=== PATIENT | male | born 1985 | race African-American/Black ===

== ENCOUNTER 2016-11-09 19:17 | Emergency (ER) | payer SELFPAY ==
[~2016-11-09 19:17] MED LIST: MIRT7.5T10 PO; PRIS50TA PO
[2016-11-09 19:32] VITALS: BP 100/63; PULSE 90; RESP 18; TEMP 97.8; O2SAT 98
--- NOTE | 2016-11-09 21:21 | PD ---
HPI Chief Complaint: Alcohol/Drug Intoxication Time Seen by Provider: 21:21 Travel History International Travel<30 days: No Contact w/Intl Traveler<30days: No Traveled to known affect area: No History of Present Illness HPI 31 year old male presents to the ED via EMS after being found sleeping on the roadside. On presentation the patient is sleeping but arouses easily to voice. He states that he drank "a bunch of 4 packs" of beer and took "a handful" of tramadol and attempt to end his life. He does not give any reason for this. He does endorse previous suicide attempts and previous psychiatric hospitalization. He denies somatic complaints. PFSH Past Medical History Arthritis: Yes Asthma: Yes Diminished Hearing: No Integumentary: Yes (HX MRSA) Seizures: Yes Past Surgical History Surgical History: No Previous Surgery Social History Alcohol Use: Yes (DAILY) Tobacco Use: Yes (1 ppd) Substance Use: Yes Allergies-Medications (Allergen,Severity, Reaction): Coded Allergies: No Known Allergies (Verified , 09/18/12) Reported Meds & Prescriptions Reported Meds & Active Scripts Active Review of Systems Except as stated in HPI: all other systems reviewed are Neg Physical Exam Narrative GENERAL: Well-nourished, well-developed male in no acute distress. Somnolent, wakes easily to voice. SKIN: Focused skin assessment warm/dry. HEAD: Normocephalic. Atraumatic EYES: No scleral icterus. No injection or drainage. 4-5 mm bilaterally, equal round and reactive NECK: Supple, trachea midline. No JVD or lymphadenopathy. CARDIOVASCULAR: Regular rate and rhythm without murmurs, gallops, or rubs. RESPIRATORY: Breath sounds clear and equal bilaterally. No accessory muscle use. GASTROINTESTINAL: Abdomen soft, non-tender, nondistended. Active bowel sounds MUSCULOSKELETAL: No cyanosis, or edema. Patient moves extremities spontaneously. BACK: Nontender without obvious deformity. No CVA tenderness. Data Data Last Documented VS Vital Signs Date Time Temp Pulse Resp B/P Pulse Ox O2 Delivery O2 Flow Rate FiO2 11/10/16 04:48 72 18 120/71 96 Room Air 11/09/16 19:32 97.8 Orders Complete Blood Count With Diff (11/09/16 21:32) Comprehensive Metabolic Panel (11/09/16 21:32) Urinalysis - C+S If Indicated (11/09/16 21:32) Oximetry (11/09/16 21:32) Iv Access Insert/Monitor (11/09/16 21:32) Ecg Monitoring (11/09/16 21:32) Psych Screen (11/09/16 21:32) Drug Screen, Random Urine (11/09/16 21:32) Alcohol (Ethanol) (11/09/16 21:32) Salicylates (Aspirin) (11/09/16 21:32) Tylenol (Acetaminophen) (11/09/16 21:32) Diet Regular Basic (11/10/16 Breakfast) Labs Laboratory Tests Test 11/09/16 21:50 White Blood Count 13.2 TH/MM3 Red Blood Count 5.13 MIL/MM3 Hemoglobin 14.3 GM/DL Hematocrit 44.5 % Mean Corpuscular Volume 86.6 FL Mean Corpuscular Hemoglobin 27.9 PG Mean Corpuscular Hemoglobin 32.2 % Concent Red Cell Distribution Width 14.7 % Platelet Count 240 TH/MM3 Mean Platelet Volume 7.4 FL Neutrophils (%) (Auto) 83.0 % Lymphocytes (%) (Auto) 10.3 % Monocytes (%) (Auto) 6.1 % Eosinophils (%) (Auto) 0.3 % Basophils (%) (Auto) 0.3 % Neutrophils # (Auto) 10.9 TH/MM3 Lymphocytes # (Auto) 1.4 TH/MM3 Monocytes # (Auto) 0.8 TH/MM3 Eosinophils # (Auto) 0.0 TH/MM3 Basophils # (Auto) 0.0 TH/MM3 CBC Comment DIFF FINAL Differential Comment Sodium Level 139 MEQ/L Potassium Level 3.5 MEQ/L Chloride Level 102 MEQ/L Carbon Dioxide Level 27.2 MEQ/L Anion Gap 10 MEQ/L Blood Urea Nitrogen 6 MG/DL Creatinine 1.11 MG/DL Estimat Glomerular Filtration 92 ML/MIN Rate Random Glucose 88 MG/DL Calcium Level 8.7 MG/DL Total Bilirubin 0.3 MG/DL Aspartate Amino Transf 34 U/L (AST/SGOT) Alanine Aminotransferase 34 U/L (ALT/SGPT) Alkaline Phosphatase 85 U/L Total Protein 7.7 GM/DL Albumin 3.7 GM/DL Salicylates Level LESS THAN 1.7 MG/DL Acetaminophen Level LESS THAN 2.0 MCG/ML Ethyl Alcohol Level 172 MG/DL MDM Medical Decision Making Medical Screen Exam Complete: Yes Emergency Medical Condition: Yes Differential Diagnosis Adjustment disorder versus anxiety versus bipolar versus depression versus dementia versus electrolyte disorder versus malingering versus mood disorder versus ODD versus psychosis versus PTSD versus schizophrenia versus schizoaffective disorder versus substance-induced mood disorder versus other Narrative Course 31 year old male presents to the ED via EMS after being found sleeping on the roadside. He states that he drank "a bunch of 4 packs" of beer and took "a handful" of tramadol and attempt to end his life. He does not give any reason for this. He does endorse previous suicide attempts and previous psychiatric hospitalization. He denies somatic complaints. Vitals reviewed. Patient is somnolent but arouses easily to voice. Physical exam is otherwise unremarkable. Psych screening lab work pending, anticipate medical clearance. Disposition per psych. Lydia Zimmerman November 09, 2016 21:21
[2016-11-09 21:29] VITALS: BP 107/67; PULSE 78; RESP 12; O2SAT 95
[2016-11-09 21:30] VITALS: RESP 18; O2SAT 96
[2016-11-09 22:13] LABS: AUTOMATED NEUTROPHIL # 10.9 TH/MM3 (1.8-7.7); BASOPHIL % 0.3 % (0.0-2.0); EOSINOPHIL % 0.3 % (0.0-4.0); HEMATOCRIT 44.5 % (39.0-51.0); HEMO FLAGS DIFF FINAL; LYMPH % 10.3 % (9.0-44.0); LYMPHOCYTE # 1.4 TH/MM3 (1.0-4.8); MEAN CELL VOLUME 86.6 FL (80.0-100.0); MEAN CORPUSCULAR HEMOGLOBIN 27.9 PG (27.0-34.0); MEAN CORPUSCULAR HGB CONC 32.2 % (32.0-36.0); MONO % 6.1 % (0.0-8.0); PLATELET COUNT 240 TH/MM3 (150-450); RED BLOOD COUNT 5.13 MIL/MM3 (4.50-5.90); RED CELL DISTRIBUTION WIDTH 14.7 % (11.6-17.2); WHITE BLOOD COUNT 13.2 TH/MM3 (4.0-11.0)
[2016-11-09 22:34] LABS: ANION GAP 10 MEQ/L (5-15)
[2016-11-09 22:38] LABS: ACETAMINOPHEN LESS THAN 2.0 MCG/ML (10.0-30.0); ALKALINE PHOSPHATASE 85 U/L (45-117); ALT (GPT) 34 U/L (12-78); AST (GOT) 34 U/L (15-37); BICARBONATE 27.2 MEQ/L (21.0-32.0); BLOOD UREA NITROGEN 6 MG/DL (7-18); CHLORIDE 102 MEQ/L (98-107); GLOMERULAR FILTRATION RATE 92 ML/MIN (>89); POTASSIUM 3.5 MEQ/L (3.5-5.1); SODIUM (NA) 139 MEQ/L (136-145); TOTAL BILIRUBIN ADULT 0.3 MG/DL (0.2-1.0)
[2016-11-09 23:00] VITALS: BP 132/66; PULSE 75; RESP 14; O2SAT 97
[2016-11-10 01:00] VITALS: BP 114/71; PULSE 71; RESP 15; O2SAT 96
[2016-11-10 03:00] VITALS: BP 119/73; PULSE 77; RESP 13; O2SAT 96
[2016-11-10 04:48] VITALS: BP 120/71; PULSE 72; RESP 18; O2SAT 96
[2016-11-10 10:22] VITALS: BP 110/57; PULSE 69; RESP 16; TEMP 97; O2SAT 99
[2016-11-10] MEDS ORDERED: ZOLO100T PO (10:35)
[2016-11-10 10:37] LABS: BLOOD, URINE NEG (NEG); COMMENT (UR) CULT NOT INDICATED; CULTURE IF INDICATED CULT NOT INDICATED; GLUCOSE,URINE NEG (NEG); KETONE, URINE NEG (NEG); MUCUS URINE FEW /lpf (OCC); NITRITE,URINE NEG (NEG); URINE COLOR YELLOW (YELLW/STRAW)
[2016-11-10 10:43] LABS: AMPHETAMINE, URINE NEG (NEG); BARBITURATES, URINE NEG (NEG); COCAINE, URINE POS (NEG)
--- NOTE | 2016-11-10 15:07 | PD ---
History of Present Illness Chief Complaint: Alcohol/Drug Intoxication Time Seen by Provider: 11:45 Travel History International Travel<30 Days: No Contact w/Intl Traveler<30days: No Known affected area: No Legal Status Legal Status: Martinez Act Martinez Act Signed By: Signed by ER Provider, JUVENTINO Kennedy. Martinez Act Comment: Signed by ER Provider, JUVENTINO Kennedy. History of Present Illness: History of Present Illness HPI 31 year old male with a reported history of depression as well as substance use disorder who presents to the ED via EMS after being found sleeping on the roadside. Patient was placed under a BA after he arrived to ED as he endorsed suicide attempt by overdose of alcohol and Tramadol. Patient reported he drank "a bunch of 4 packs" of beer and took "a handful" of tramadol and attempt to end his life. Patient was monitored in J pod and exhibited no suicidality. EMR is reviewed. He was evaluated by Dr. Hyatt in 2013 with dx of depression and polysubstance abuse. Current toxicology is positive for cocaine, marijuana and BAL of 172. He is seen in J pod. Awake, alert and oriented male who is cooperative. He is maintaining hygiene. His speech is clear, logical and goal directed. he does not exhibit any psychosis, no suni. He is clinically sober at this time. he denies any suicidal or homicidal ideation, intent or plan. States " I was drunk so I don't remember what I said". PFSH Past Medical History Arthritis: Yes Asthma: Yes Diminished Hearing: No Integumentary: Yes (HX MRSA) Seizures: Yes Past Surgical History Surgical History: No Previous Surgery Psychiatric History Psychiatric History Hx Psychiatric Treatment: Received care while he was incarcerated. . Has been on Zoloft x 1 year. Missed appointmetn scheduled with [facility]. History of Inpatient Treatment: No Guns or firearms in home: No Social History Single male. Lives with a friend. 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 Served time for [employer]. Hx Alcohol Use: Yes (DAILY) Hx Tobacco Use: Yes (1 ppd) Hx Substance Use: Yes Substance Use Type: Alcohol, Crack, Marijuana, Amphetamines-Stimulants, Nicotine/Cigarettes, Benzos (Valium,Xanax), Cocaine Hx of Substance Use Treatment: Yes Family Psychiatric History Negative Allergies-Medications (Allergen,Severity, Reaction): Coded Allergies: No Known Allergies (Verified , 09/18/12) Reported Meds & Prescriptions Reported Meds & Active Scripts Active Reported Zoloft (Sertraline HCl) 100 Mg Tab 100 Mg PO DAILY Review of Systems Except as stated in HPI: all other systems reviewed are Neg Exam Alert: Yes Moose: Person (ox4) Mood: Calm Affect: Appropriate Speech: Clear, Logical Eye Contact: Normal Memory Intact: Comment (no impairment) Hallucinations: Other (Negative) Delusions: No Suicidal: Ideation (denies any) Homicidal: Ideation (denies any) Insight/Judgement Poor. Not impaired MDM Medical Decision Making Medical Record Reviewed: Yes Assessment/Plan 31 year old male with history of depression as well as substance use disorder that in context of acute substance and alcohol intoxication made suicidal statements. After patient was allowed to sober up clinically he denies any suicidal or homicidal ideation, intent or plan. He is requesting discharge from ED and does no meet criteria at this time. Psychoeducation is provided. Abstinence is advised . lift BA psyc Orders Complete Blood Count With Diff (11/09/16 21:32) Comprehensive Metabolic Panel (11/09/16 21:32) Urinalysis - C+S If Indicated (11/09/16 21:32) Oximetry (11/09/16 21:32) Iv Access Insert/Monitor (11/09/16 21:32) Ecg Monitoring (11/09/16 21:32) Psych Screen (11/09/16 21:32) Drug Screen, Random Urine (11/09/16 21:32) Alcohol (Ethanol) (11/09/16 21:32) Salicylates (Aspirin) (11/09/16 21:32) Tylenol (Acetaminophen) (11/09/16 21:32) Diet Regular Basic (11/10/16 Breakfast) Results Vital Signs Date Time Temp Pulse Resp B/P Pulse Ox O2 Delivery O2 Flow Rate FiO2 11/10/16 10:22 97.0 69 16 110/57 99 11/10/16 04:48 72 18 120/71 96 Room Air 11/10/16 03:00 77 13 119/73 96 Room Air 11/10/16 01:00 71 15 114/71 96 Room Air 11/09/16 23:00 75 14 132/66 97 Room Air 11/09/16 21:30 18 96 Room Air 11/09/16 21:29 78 12 107/67 95 11/09/16 19:48 18 100 11/09/16 19:32 97.8 90 18 100/63 98 Laboratory Tests Test 11/09/16 11/10/16 21:50 10:20 White Blood Count 13.2 Red Blood Count 5.13 Hemoglobin 14.3 Hematocrit 44.5 Mean Corpuscular Volume 86.6 Mean Corpuscular Hemoglobin 27.9 Mean Corpuscular Hemoglobin 32.2 Concent Red Cell Distribution Width 14.7 Platelet Count 240 Mean Platelet Volume 7.4 Neutrophils (%) (Auto) 83.0 Lymphocytes (%) (Auto) 10.3 Monocytes (%) (Auto) 6.1 Eosinophils (%) (Auto) 0.3 Basophils (%) (Auto) 0.3 Neutrophils # (Auto) 10.9 Lymphocytes # (Auto) 1.4 Monocytes # (Auto) 0.8 Eosinophils # (Auto) 0.0 Basophils # (Auto) 0.0 CBC Comment DIFF FINAL Differential Comment Sodium Level 139 Potassium Level 3.5 Chloride Level 102 Carbon Dioxide Level 27.2 Anion Gap 10 Blood Urea Nitrogen 6 Creatinine 1.11 Estimat Glomerular Filtration 92 Rate Random Glucose 88 Calcium Level 8.7 Total Bilirubin 0.3 Aspartate Amino Transf 34 (AST/SGOT) Alanine Aminotransferase 34 (ALT/SGPT) Alkaline Phosphatase 85 Total Protein 7.7 Albumin 3.7 Salicylates Level LESS THAN 1.7 Acetaminophen Level LESS THAN 2.0 Ethyl Alcohol Level 172 Urine Color YELLOW Urine Turbidity CLEAR Urine pH 6.0 Urine Specific [place] 1.017 Urine Protein TRACE Urine Glucose (UA) NEG Urine Ketones NEG Urine Occult Blood NEG Urine Nitrite NEG Urine Bilirubin NEG Urine Urobilinogen 2.0 Urine Leukocyte Esterase NEG Urine RBC 1 Urine WBC 1 Urine Mucus FEW Microscopic Urinalysis Comment CULT NOT INDICATED Urine Opiates Screen NEG Urine Barbiturates Screen NEG Urine Amphetamines Screen NEG Urine Benzodiazepines Screen POS Urine Cocaine Screen POS Urine Cannabinoids Screen POS Diagnosis Primary Impression: Substance induced mood disorder Additional Impressions: Medical clearance for psychiatric admission Polysubstance abuse Psychiatrically Cleared: Yes Departure Forms: Tests/Procedures Patient Instructions: General Instructions, Mood Disorders (ED), Polysubstance Abuse (ED), Medical Clearance for Psychiatric Care (ED) Additional Instructions: Follow up with outpatient primary care provider. Follow up with outpatient psychiatric/substance abuse provider/[facility]ieves Act [phone]. CALL PRICE FREGOSO AND RESCHEDULE APPT MISSED. Attend AA/NA Meetings. Return to ER if any symptoms worsen. Med/ Other Pt Specific Info: No Change to Meds Disposition: 01 DISCHARGE HOME Condition: Stable Problem Qualifiers Venessa Sheffield [facility] November 10, 2016 15:06
== END 2016-11-10 12:37 | disposition home or self-care (01) ==
LOC: NEPD 19:17 → NEPJ 11-10 12:37
DX: F10.120 Alcohol abuse with intoxication, uncomplicated (principal); F17.210 Nicotine dependence, cigarettes, uncomplicated; F10.10 Alcohol abuse, uncomplicated; F12.10 Cannabis abuse, uncomplicated; F14.10 Cocaine abuse, uncomplicated; F15.10 Other stimulant abuse, uncomplicated; F32.9 Major depressive disorder, single episode, unspecified; Z91.5 Personal history of self-harm
CPT/HCPCS: 80053; 80307; 81001; 85025; 99285

== ENCOUNTER 2016-12-01 03:33 | Emergency (ER) | payer OTHER ==
[~2016-12-01] VITALS: Ht 167.6 cm; Wt 62.0 kg
[2016-12-01] VITALS (14 sets, daily range): BP systolic 98–164; BP diastolic 57–99; PULSE 44–83; RESP 13–20; TEMP 97.6–98.4; O2SAT 96–99
[~2016-12-01 03:33] MED LIST changes: -MIRT7.5T10 PO; -PRIS50TA PO; +ZOLO100T PO
[2016-12-01] MEDS ORDERED: SODIUM CHLOR 0.9% 1000 ML INJ 1,000 ML IV ONE (03:45)
[2016-12-01 04:15] LABS: AUTOMATED NEUTROPHIL # 6.5 TH/MM3 (1.8-7.7); BASOPHIL % 0.5 % (0.0-2.0); EOSINOPHIL # 0.2 TH/MM3 (0-0.4); HEMATOCRIT 47.3 % (39.0-51.0); HEMO FLAGS DIFF FINAL; LYMPH % 22.4 % (9.0-44.0); LYMPHOCYTE # 2.2 TH/MM3 (1.0-4.8); MEAN CORPUSCULAR HEMOGLOBIN 28.8 PG (27.0-34.0); MEAN CORPUSCULAR HGB CONC 33.5 % (32.0-36.0); MONO % 9.3 % (0.0-8.0); NEUT % 65.8 % (16.0-70.0); PLATELET COUNT 242 TH/MM3 (150-450); RED CELL DISTRIBUTION WIDTH 14.5 % (11.6-17.2); WHITE BLOOD COUNT 9.8 TH/MM3 (4.0-11.0)
[2016-12-01 04:26] LABS: APTT (PATIENT) 25.9 SEC (24.3-30.1); PROTHROMBIN TIME - PATIENT 10.8 SEC (9.8-11.6)
--- NOTE | 2016-12-01 04:29 | RADRPT ---
EXAM DATE/TIME: 12/01/2016 04:20 [place] COMPARISON: No previous studies available for comparison. INDICATIONS : Cough. MEDICAL HISTORY : None. SURGICAL HISTORY : None. ENCOUNTER: Initial ACUITY: 1 day PAIN SCORE: 0/10 LOCATION: Bilateral chest FINDINGS: A single view of the chest demonstrates the lungs to be symmetrically aerated without evidence of mas s, infiltrate or effusion. The cardiomediastinal contours are unremarkable. Osseous structures are intact. CONCLUSION: Normal examination. Scott Hernandez MD on December 01, 2016 at 4:27 Board Certified Radiologist. This report was verified electronically.
[2016-12-01 04:47] LABS: ANION GAP 10 MEQ/L (5-15)
--- NOTE | 2016-12-01 04:52 | PD ---
HPI Chief Complaint: Psychiatric Symptoms Time Seen by Provider: 03:42 Travel History International Travel<30 days: No Contact w/Intl Traveler<30days: No Traveled to known affect area: No History of Present Illness HPI The patient is a 31 year old male who presents to the [facility] emergency department with a history of depressive symptoms that began to worsen a week and a half ago and have been associated with suicidal ideations. The patient arrived in the emergency department with a suicide note and proceeded to take 13 of his 100 mg Zoloft when arriving in triage. He then provided a suicide note to the security staff. The patient reports that the Zoloft as his prescription. The patient reports that he also drinks alcohol on a daily basis. He reports that he does get tremulous when he does not drink. He denies having any prior seizure activity. Condition additionally reports that he uses cocaine on a regular basis. The patient denies any recent fevers, cough , congestion, neck pain, chest pain, shortness of breath, abdominal pain, vomiting, diarrhea, urinary symptoms, or neurologic symptoms. [facility] Past Medical History Narrative Medical The patient's past medical history is significant for polysubstance abuse, arthritis, asthma, history of MRSA skin infections, history of seizure activity , history of depression. Arthritis: Yes Asthma: Yes Diminished Hearing: No Integumentary: Yes (HX MRSA) Seizures: Yes Past Surgical History Narrative Surgical The patient's past surgical history is reportedly none. Surgical History: No Previous Surgery Social History Alcohol Use: Yes (DAILY) Tobacco Use: Yes (1 ppd) Substance Use: Yes (cocaine) Allergies-Medications (Allergen,Severity, Reaction): Coded Allergies: No Known Allergies (Verified , 12/01/16) Reported Meds & Prescriptions Reported Meds & Active Scripts Active Reported Zoloft (Sertraline HCl) 100 Mg Tab 100 Mg PO DAILY Review of Systems Except as stated in HPI: all other systems reviewed are Neg General / Constitutional: No: Fever Eyes: No: Visual changes HENT: No: Headaches Cardiovascular: No: Chest Pain or Discomfort Respiratory: No: Shortness of Breath Gastrointestinal: No: Abdominal Pain Genitourinary: No: Dysuria Musculoskeletal: No: Pain Skin: No Rash Neurologic: No: Weakness Psychiatric: Positive: Depression, Suicidal Ideations, Mood Disorder, Substance Abuse, No: Anxiety, Disorder of Thought, Homicidal Ideation Endocrine: No: Polydipsia Hematologic/Lymphatic: No: Easy Bruising Physical Exam Narrative General: The patient is well-developed well-nourished male in no acute distress. Head and Neck exam: Head is normocephalic atraumatic. Eyes: EOMI, pupils are equal round and reactive to light. Nose: Midline septum with pink mucous membranes Mouth: Dentition unremarkable. Moist mucus membranes. Posterior oropharynx is not erythematous. No tonsillar hypertrophy. Uvula midline. Airway patent. Neck: No palpable lymphadenopathy. No nuchal rigidity. No thyromegaly. Cardiovascular: Regular rate and rhythm without murmurs, gallops, or rubs. Lungs: Clear to auscultation bilaterally. No wheezes, rhonchi, or rales. Abdomen: Soft, without tenderness to palpation in all 4 quadrants of the abdomen. No guarding, rebound, or rigidity. Normal bowel sounds are audible. No tenderness on palpation of McBurney's point. Extremities: No clubbing, cyanosis, or edema. 2+ pulses in all 4 extremities. Back: No costovertebral angle tenderness to palpation. Neurologic Exam: Grossly nonfocal. Flat affect. Intermittently tearful. Skin Exam: No rash noted. Intact skin that is warm and dry. Data Data Last Documented VS Vital Signs Date Time Temp Pulse Resp B/P Pulse Ox O2 Delivery O2 Flow Rate FiO2 12/01/16 04:59 62 16 118/76 97 12/01/16 04:01 Room Air 12/01/16 03:35 98.4 Orders Complete Blood Count With Diff (12/01/16 03:44) Comprehensive Metabolic Panel (12/01/16 03:44) Thyroid Stimulating Hormone (12/01/16 03:44) Urinalysis - C+S If Indicated (12/01/16 03:44) Electrocardiogram (12/01/16 03:44) Oximetry (12/01/16 03:44) Iv Access Insert/Monitor (12/01/16 03:44) Ecg Monitoring (12/01/16 03:44) Psych Screen (12/01/16 03:44) Drug Screen, Random Urine (12/01/16 03:44) Alcohol (Ethanol) (12/01/16 03:44) Salicylates (Aspirin) (12/01/16 03:44) Tylenol (Acetaminophen) (12/01/16 03:44) Prothrombin Time / Inr (Pt) (12/01/16 03:44) Act Partial Throm Time (Ptt) (12/01/16 03:44) Chest, Single Ap (12/01/16 03:44) Sodium Chlor 0.9% 1000 Ml Inj (Ns 1000 M (12/01/16 03:45) Labs Laboratory Tests Test 12/01/16 04:10 White Blood Count 9.8 TH/MM3 Red Blood Count 5.50 MIL/MM3 Hemoglobin 15.9 GM/DL Hematocrit 47.3 % Mean Corpuscular Volume 86.0 FL Mean Corpuscular Hemoglobin 28.8 PG Mean Corpuscular Hemoglobin 33.5 % Concent Red Cell Distribution Width 14.5 % Platelet Count 242 TH/MM3 Mean Platelet Volume 7.4 FL Neutrophils (%) (Auto) 65.8 % Lymphocytes (%) (Auto) 22.4 % Monocytes (%) (Auto) 9.3 % Eosinophils (%) (Auto) 2.0 % Basophils (%) (Auto) 0.5 % Neutrophils # (Auto) 6.5 TH/MM3 Lymphocytes # (Auto) 2.2 TH/MM3 Monocytes # (Auto) 0.9 TH/MM3 Eosinophils # (Auto) 0.2 TH/MM3 Basophils # (Auto) 0.0 TH/MM3 CBC Comment DIFF FINAL Differential Comment Prothrombin Time 10.8 SEC Prothromb Time International 1.0 RATIO Ratio Activated Partial 25.9 SEC Thromboplast Time Salicylates Level LESS THAN 1.7 MG/DL MDM Medical Decision Making Medical Screen Exam Complete: Yes Emergency Medical Condition: Yes Medical Record Reviewed: Yes Differential Diagnosis Depression with suicidal ideations, versus substance induced mood disorder. Narrative Course During the course of the patients emergency department visit, the patients history, examination, and differential diagnosis were reviewed with the patient. The patient had IV access obtained and blood work sent for analysis. The patient was placed on a air sampling and monitoring with oximetry and blood pressure monitoring. An EKG was done on arrival. The patient's EKG shows a sinus rhythm heart rate of 60 QRS duration 82 ms, QTC 387 ms. The patient was initially provided normal saline 1 L IV fluid bolus. The patients laboratory studies were reviewed and remarkable for a white count of 9.8, hemoglobin 15.9, platelets 242 with monocytes 9.3, CMP is unremarkable, TSH 1.31, PT 10.8, PTT 25.9. Acetaminophen less than 2, alcohol level XIX, salicylate less than 1.7 Radiology studies were reviewed and remarkable for a chest x-ray that shows no acute abnormality. The patient has been medically cleared for admission to the psychiatric service under a Martinez act. Diagnosis Primary Impression: Medical clearance for psychiatric admission Additional Impression: Depression with suicidal ideation Admitting Information Admitting Physician Requests: Admit Sylvia Keita MD Dec 01, 2016 04:52
[2016-12-01 05:02] LABS: ALKALINE PHOSPHATASE 116 U/L (45-117); ALT (GPT) 20 U/L (12-78); AST (GOT) 21 U/L (15-37); BICARBONATE 27.5 MEQ/L (21.0-32.0); BLOOD UREA NITROGEN 3 MG/DL (7-18); CHLORIDE 104 MEQ/L (98-107); GLOMERULAR FILTRATION RATE 101 ML/MIN (>89); POTASSIUM 3.7 MEQ/L (3.5-5.1); SODIUM (NA) 141 MEQ/L (136-145); TOTAL BILIRUBIN ADULT 0.5 MG/DL (0.2-1.0)
[2016-12-01 05:07] LABS: ACETAMINOPHEN LESS THAN 2.0 MCG/ML (10.0-30.0)
[2016-12-01] MEDS ORDERED: ONDANSETRON HCL 4 MG/2 ML VIAL IV ONE (06:45)
--- NOTE | 2016-12-01 10:28 | PD ---
Physical Exam Date Seen by Provider: Dec 01, 2016 Time Seen by Provider: 07:00 Narrative Patient signed out to me by Dr. Keita for reevaluation of EKG and vital signs, Martinez act, intentional overdose of his psych meds. Please see Dr. Keita's note for further details. EKG done at 10 AM shows normal sinus rhythm with no signs of acute ST-T changes , QT prolongation, or QRS prolongation. At this point I'll signs remained stable in my plan would be to medically clear the patient for psychiatric evaluation. Data Data Last Documented VS Vital Signs Date Time Temp Pulse Resp B/P Pulse Ox O2 Delivery O2 Flow Rate FiO2 12/01/16 06:40 83 18 123/71 99 12/01/16 04:01 Room Air 12/01/16 03:35 98.4 Orders Complete Blood Count With Diff (12/01/16 03:44) Comprehensive Metabolic Panel (12/01/16 03:44) Thyroid Stimulating Hormone (12/01/16 03:44) Urinalysis - C+S If Indicated (12/01/16 03:44) Electrocardiogram (12/01/16 03:44) Oximetry (12/01/16 03:44) Iv Access Insert/Monitor (12/01/16 03:44) Ecg Monitoring (12/01/16 03:44) Psych Screen (12/01/16 03:44) Drug Screen, Random Urine (12/01/16 03:44) Alcohol (Ethanol) (12/01/16 03:44) Salicylates (Aspirin) (12/01/16 03:44) Tylenol (Acetaminophen) (12/01/16 03:44) Prothrombin Time / Inr (Pt) (12/01/16 03:44) Act Partial Throm Time (Ptt) (12/01/16 03:44) Chest, Single Ap (12/01/16 03:44) Sodium Chlor 0.9% 1000 Ml Inj (Ns 1000 M (12/01/16 03:45) Ondansetron Inj (Zofran Inj) (12/01/16 06:45) Electrocardiogram (12/01/16 06:51) Electrocardiogram (12/01/16 09:38) Labs Laboratory Tests Test 12/01/16 04:10 White Blood Count 9.8 TH/MM3 Red Blood Count 5.50 MIL/MM3 Hemoglobin 15.9 GM/DL Hematocrit 47.3 % Mean Corpuscular Volume 86.0 FL Mean Corpuscular Hemoglobin 28.8 PG Mean Corpuscular Hemoglobin 33.5 % Concent Red Cell Distribution Width 14.5 % Platelet Count 242 TH/MM3 Mean Platelet Volume 7.4 FL Neutrophils (%) (Auto) 65.8 % Lymphocytes (%) (Auto) 22.4 % Monocytes (%) (Auto) 9.3 % Eosinophils (%) (Auto) 2.0 % Basophils (%) (Auto) 0.5 % Neutrophils # (Auto) 6.5 TH/MM3 Lymphocytes # (Auto) 2.2 TH/MM3 Monocytes # (Auto) 0.9 TH/MM3 Eosinophils # (Auto) 0.2 TH/MM3 Basophils # (Auto) 0.0 TH/MM3 CBC Comment DIFF FINAL Differential Comment Prothrombin Time 10.8 SEC Prothromb Time International 1.0 RATIO Ratio Activated Partial 25.9 SEC Thromboplast Time Sodium Level 141 MEQ/L Potassium Level 3.7 MEQ/L Chloride Level 104 MEQ/L Carbon Dioxide Level 27.5 MEQ/L Anion Gap 10 MEQ/L Blood Urea Nitrogen 3 MG/DL Creatinine 1.03 MG/DL Estimat Glomerular Filtration 101 ML/MIN Rate Random Glucose 84 MG/DL Calcium Level 8.9 MG/DL Total Bilirubin 0.5 MG/DL Aspartate Amino Transf 21 U/L (AST/SGOT) Alanine Aminotransferase 20 U/L (ALT/SGPT) Alkaline Phosphatase 116 U/L Total Protein 8.1 GM/DL Albumin 3.7 GM/DL Thyroid Stimulating Hormone 1.310 uIU/ML 3rd Gen Salicylates Level LESS THAN 1.7 MG/DL Acetaminophen Level LESS THAN 2.0 MCG/ML Ethyl Alcohol Level 19 MG/DL [facility] Medical Record Reviewed: Yes Supervised Visit with PETER: No Diagnosis Primary Impression: Medical clearance for psychiatric admission Additional Impression: Depression with suicidal ideation Disposition: 65 DISC TO PSYCH CARE FACILITY Condition: Stable Stephanie Manley MD Dec 01, 2016 10:27
[2016-12-01 11:18] LABS: BLOOD, URINE NEG (NEG); COMMENT (UR) CULT NOT INDICATED; CULTURE IF INDICATED CULT NOT INDICATED; GLUCOSE,URINE NEG (NEG); KETONE, URINE NEG (NEG); NITRITE,URINE NEG (NEG); PH, URINE 7.5 (5.0-8.5); URINE COLOR LIGHT-YELLOW (YELLW/STRAW)
[2016-12-01 11:42] LABS: AMPHETAMINE, URINE NEG (NEG); BARBITURATES, URINE NEG (NEG); COCAINE, URINE POS (NEG)
[2016-12-01] MEDS ORDERED: FLUMAZENIL 0.5 MG/5 ML VIAL IV PUSH PRN (17:45)
[2016-12-01] MEDS ORDERED: LORazepam 2 MG/ML VIAL IV PUSH PRN ×4 (17:45)
[2016-12-01] MEDS ORDERED: LORazepam 1 MG TAB PO PRN (17:45)
[2016-12-01] MEDS ORDERED: LORazepam 2 MG TAB PO PRN (17:45)
--- NOTE | 2016-12-01 22:23 | EKG ---
Date Performed: 12/01/2016 Time Performed: 04:16:15 PTAGE: 31 years EKG: Sinus rhythm NORMAL ECG NO PREVIOUS TRACING DOCTOR: Amari Montgomery Interpretating Date/Time 12/01/2016 22:21:56
--- NOTE | 2016-12-01 22:23 | EKG ---
Date Performed: 12/01/2016 Time Performed: 07:12:48 PTAGE: 31 years EKG: Sinus rhythm Since previous tracing, no significant change noted NORMAL ECG PREVIOUS TRACING : 12/01/2016 04.16 DOCTOR: Amari Montgomery Interpretating Date/Time 12/01/2016 22:22:14
--- NOTE | 2016-12-01 22:24 | EKG ---
Date Performed: 12/01/2016 Time Performed: 10:12:26 PTAGE: 31 years EKG: Sinus rhythm Since previous tracing, no significant change noted NORMAL ECG PREVIOUS TRACING : 12/01/2016 07.12.48 DOCTOR: Amari Montgomery Interpretating Date/Time 12/01/2016 22:22:48
[2016-12-02 02:05] VITALS: BP 110/55; PULSE 60; RESP 18; O2SAT 96
[2016-12-02 06:17] VITALS: BP 116/58; PULSE 55; RESP 18; O2SAT 97
== END 2016-12-02 11:00 ==
LOC: NEPC 03:33 → NEPJ 12-02 11:00
DX: Z02.89 Encounter for other administrative examinations (principal); F32.9 Major depressive disorder, single episode, unspecified; R45.851 Suicidal ideations; F17.200 Nicotine dependence, unspecified, uncomplicated; Z87.39 Personal history of other diseases of the musculoskeletal system and connective tissue; Z87.09 Personal history of other diseases of the respiratory system; Z86.14 Personal history of Methicillin resistant Staphylococcus aureus infection; Z86.69 Personal history of other diseases of the nervous system and sense organs
CPT/HCPCS: 71010; 80053; 80307; 81001; 84443; 85025; 85610; 85730; 93005; 96361; 96374; 99285; J2405; J7030

== ENCOUNTER 2017-01-02 03:43 | Emergency (ER) | payer OTHER ==
[2017-01-02] VITALS (8 sets, daily range): BP systolic 82–136; BP diastolic 43–79; PULSE 60–89; RESP 14–20; TEMP 96.5–98.1; O2SAT 95–98
[~2017-01-02] VITALS: Ht 162.6 cm; Wt 70.0 kg
[2017-01-02] MEDS ORDERED: LORazepam 2 MG/ML VIAL IM ONE (04:00)
[2017-01-02] MEDS ORDERED: LORazepam 2 MG/ML VIAL IV ONE (04:00)
[2017-01-02 04:23] LABS: AUTOMATED NEUTROPHIL # 3.5 TH/MM3 (1.8-7.7); BASOPHIL % 0.3 % (0.0-2.0); EOSINOPHIL # 0.2 TH/MM3 (0-0.4); EOSINOPHIL % 2.5 % (0.0-4.0); HEMATOCRIT 43.9 % (39.0-51.0); HEMO FLAGS DIFF FINAL; LYMPH % 43.8 % (9.0-44.0); LYMPHOCYTE # 3.8 TH/MM3 (1.0-4.8); MEAN CELL VOLUME 85.8 FL (80.0-100.0); MEAN CORPUSCULAR HEMOGLOBIN 29.2 PG (27.0-34.0); MONO % 12.4 % (0.0-8.0); PLATELET COUNT 253 TH/MM3 (150-450); RED BLOOD COUNT 5.11 MIL/MM3 (4.50-5.90); RED CELL DISTRIBUTION WIDTH 13.6 % (11.6-17.2); WHITE BLOOD COUNT 8.6 TH/MM3 (4.0-11.0)
[2017-01-02 04:50] LABS: ALT (GPT) 23 U/L (12-78); ANION GAP 8 MEQ/L (5-15); AST (GOT) 24 U/L (15-37); BICARBONATE 27.7 MEQ/L (21.0-32.0); BLOOD UREA NITROGEN 6 MG/DL (7-18); CHLORIDE 107 MEQ/L (98-107); GLOMERULAR FILTRATION RATE 93 ML/MIN (>89); POTASSIUM 3.5 MEQ/L (3.5-5.1); SODIUM (NA) 143 MEQ/L (136-145)
[2017-01-02 04:53] LABS: ALKALINE PHOSPHATASE 88 U/L (45-117); TOTAL BILIRUBIN ADULT 0.4 MG/DL (0.2-1.0)
[2017-01-02 04:55] LABS: ACETAMINOPHEN LESS THAN 2.0 MCG/ML (10.0-30.0)
--- NOTE | 2017-01-02 05:47 | PD ---
HPI Chief Complaint: Psychiatric Symptoms Time Seen by Provider: 03:55 Travel History International Travel<30 days: No Contact w/Intl Traveler<30days: No Traveled to known affect area: No History of Present Illness HPI Patient is a 31 year old male who comes in under a Martinez Act after he told police he wanted to kill himself. He says that he wants to kill everyone. He admits to drug and alcohol use. He denies any complaints at this time. He says he is supposed to be on psychiatric medication, but is not taking it. [facility] Past Medical History Arthritis: Yes Asthma: Yes Bipolar Disorder: Yes Depression: Yes Diminished Hearing: No Integumentary: Yes (HX MRSA) Seizures: Yes Tetanus Vaccination: Unknown Past Surgical History Surgical History: No Previous Surgery Social History Alcohol Use: Yes (DAILY) Tobacco Use: Yes (1 ppd) Substance Use: Yes (cocaine) Allergies-Medications (Allergen,Severity, Reaction): Coded Allergies: No Known Allergies (Verified , 12/01/16) Reported Meds & Prescriptions Reported Meds & Active Scripts Active No Active Prescriptions or Reported Medications Review of Systems Except as stated in HPI: all other systems reviewed are Neg General / Constitutional: No: Fever HENT: No: Headaches, Lightheadedness Cardiovascular: No: Chest Pain or Discomfort Respiratory: No: Shortness of Breath Gastrointestinal: No: Nausea, Vomiting, Abdominal Pain Musculoskeletal: No: Pain Skin: No Rash, No Itching Neurologic: No: Weakness, Dizziness Psychiatric: Positive: Suicidal Ideations, Substance Abuse, Homicidal Ideation Physical Exam Narrative GENERAL: Awake and alert, in no acute distress. SKIN: Focused skin assessment warm/dry. HEAD: Atraumatic. Normocephalic. EYES: Pupils equal and round. No scleral icterus. No injection or drainage. ENT: Mucous membranes pink and moist. NECK: Trachea midline. No JVD. CARDIOVASCULAR: Regular rate and rhythm. No murmur appreciated. RESPIRATORY: No accessory muscle use. Clear to auscultation. Breath sounds equal bilaterally. GASTROINTESTINAL: Abdomen soft, non-tender, nondistended. MUSCULOSKELETAL: No obvious deformities. No clubbing. No cyanosis. No edema. NEUROLOGICAL: Awake and alert. No obvious cranial nerve deficits. Motor grossly within normal limits. Normal speech. PSYCHIATRIC: Appropriate mood and affect; insight and judgment normal. Data Data Last Documented VS Vital Signs Date Time Temp Pulse Resp B/P Pulse Ox O2 Delivery O2 Flow Rate FiO2 01/02/17 03:48 98.1 80 18 136/79 96 Orders Complete Blood Count With Diff (01/02/17 03:56) Comprehensive Metabolic Panel (01/02/17 03:56) Psych Screen (01/02/17 03:56) Lorazepam Inj (Ativan Inj) (01/02/17 04:00) Drug Screen, Random Urine (01/02/17 03:56) Alcohol (Ethanol) (01/02/17 03:56) Salicylates (Aspirin) (01/02/17 03:56) Tylenol (Acetaminophen) (01/02/17 03:56) Lorazepam Inj (Ativan Inj) (01/02/17 04:00) Restraints Non-Violent TIN.Q3H (01/02/17 04:20) Labs Laboratory Tests Test 01/02/17 04:00 White Blood Count 8.6 TH/MM3 Red Blood Count 5.11 MIL/MM3 Hemoglobin 14.9 GM/DL Hematocrit 43.9 % Mean Corpuscular Volume 85.8 FL Mean Corpuscular Hemoglobin 29.2 PG Mean Corpuscular Hemoglobin 34.0 % Concent Red Cell Distribution Width 13.6 % Platelet Count 253 TH/MM3 Mean Platelet Volume 7.9 FL Neutrophils (%) (Auto) 41.0 % Lymphocytes (%) (Auto) 43.8 % Monocytes (%) (Auto) 12.4 % Eosinophils (%) (Auto) 2.5 % Basophils (%) (Auto) 0.3 % Neutrophils # (Auto) 3.5 TH/MM3 Lymphocytes # (Auto) 3.8 TH/MM3 Monocytes # (Auto) 1.1 TH/MM3 Eosinophils # (Auto) 0.2 TH/MM3 Basophils # (Auto) 0.0 TH/MM3 CBC Comment DIFF FINAL Differential Comment Sodium Level 143 MEQ/L Potassium Level 3.5 MEQ/L Chloride Level 107 MEQ/L Carbon Dioxide Level 27.7 MEQ/L Anion Gap 8 MEQ/L Blood Urea Nitrogen 6 MG/DL Creatinine 1.10 MG/DL Estimat Glomerular Filtration 93 ML/MIN Rate Random Glucose 78 MG/DL Calcium Level 9.0 MG/DL Total Bilirubin 0.4 MG/DL Aspartate Amino Transf 24 U/L (AST/SGOT) Alanine Aminotransferase 23 U/L (ALT/SGPT) Alkaline Phosphatase 88 U/L Total Protein 8.5 GM/DL Albumin 4.0 GM/DL Salicylates Level LESS THAN 1.7 MG/DL Acetaminophen Level LESS THAN 2.0 MCG/ML Ethyl Alcohol Level 184 MG/DL [facility] Medical Decision Making Medical Screen Exam Complete: Yes Emergency Medical Condition: Yes Medical Record Reviewed: Yes Differential Diagnosis psychosis vs intoxication vs drug abuse vs homicidal ideation Narrative Course Patient is a 31-year-old male comes in as a Martinez act due to homicidal and suicidal ideation. He has no medical complaints at this time. Exam shows no abnormalities. Patient is in restraints. Labs sent show no acute abnormalities. Patient will be medically cleared for psychiatric evaluation. Disposition per psychiatry. Diagnosis Primary Impression: Substance induced mood disorder Scripts No Active Prescriptions or Reported Meds Condition: Muna Wang MD Jan 02, 2017 05:47
[2017-01-02 11:46] LABS: AMPHETAMINE, URINE NEG (NEG); BARBITURATES, URINE NEG (NEG); COCAINE, URINE POS (NEG)
[2017-01-02] MEDS ORDERED: ZOLO100T PO (18:35)
[2017-01-02] MEDS ORDERED: VISTARIL (18:35)
[2017-01-02] MEDS ORDERED: IBUPROFEN 800 MG TAB PO ONE (19:45)
[2017-01-03 03:10] VITALS: BP 109/67; PULSE 56; RESP 18; TEMP 98.8; O2SAT 100
[2017-01-03 06:22] VITALS: BP 97/57; PULSE 58; RESP 18; O2SAT 100
[2017-01-03 10:20] VITALS: BP 100/64; PULSE 56; RESP 18; TEMP 98.1; O2SAT 96
[2017-01-03 11:02] VITALS: BP 97/57; TEMP 97.3
--- NOTE | 2017-01-03 11:17 | PD.PSY.CON ---
Provisional Diagnosis Admission Date [place] I. Adjustment disorder with mixed disturbances of emotion and conduct F 43.25 Substance induced mood disorder F 19.94 polysubstance abuse f 19.10 History of Present Illness Service Psychiatry Consult Requested By ED attending Reason for Consult Michelle sousa Primary Care Physician Unknown HPI Patient is a 31 year-old -Malagasy male comes here under Michelle act by the [place] [employer] dated 01/02/17 at 0340 a.m. the document reviewed and agreed with the states essentially that the subject out and 911 from a pay phone to [address] in [place]. 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 He then walked up to 7 units in the parking lot of [facility] and advise them that he wishes to kill himself. He said he was tired of living "only wanted his kids to have a picture of him" and also was advised he "wants to quickly and will take people with him" the subject appeared to be under the influence of an unknown narcotic and refused to provide responding officers with his name the subject provided his name upon arrival at [facility] patient seen screened in the ED urine toxicology positive for cocaine blood alcohol level of 184. Patient seen in his room on J pod with nurse Meaghan. Patient alert oriented thin slender Afro-Malagasy male acknowledges being an alcoholic acknowledges daily drinking a.m. drinking so lower drinking, acknowledges having had blackouts passout spells. He states was in detox in [facility] the past few years. He states he said various legal issues also related and alcohol. He acknowledges cocaine use everyday. Also acknowledges having multiple incarcerations state he Benadryl for number of years and just released from shelter the past 1-2 months. He did state he is now a client with [facility] sees coming on his prescribed medication though it is questionable his compliance with that. 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 He lives occasionally with various friends. It appears she has 7 children he is not close to any of them. Patient continues to denies suicidality homicidality voices or visions. At this time he does not meet Martinez criteria will lift the Michelle act allow patient to be discharged from self. The been no Rx by me he may continues on prescribed medication from [facility] and follow-up with [facility] Marchman act both medication management and subsequent abuse assessment. Also referred to AA and NA Review of Systems Constitutional: DENIES: Diaphoretic episodes, Fatigue, Fever, Weight gain, Weight loss, Chills, Dizziness, Change in appetite, Night Sweats Endocrine: DENIES: Heat/cold intolerance, Polydipsia, Polyuria, Polyphagia Eyes: DENIES: Blurred vision, Diplopia, Eye inflammation, Eye pain, Vision loss , Photosensitivity, Double Vision Ears, nose, mouth, throat: DENIES: Tinnitus, Hearing loss, Vertigo, Nasal discharge, Oral lesions, Throat pain, Hoarseness, Ear Pain, Running Nose, Epistaxis, Sinus Pain, Toothache, Odynophagia Respiratory: DENIES: Apneas, Cough, Snoring, Wheezing, Hemoptysis, Sputum production, Shortness of breath Cardiovascular: DENIES: Chest pain, Palpitations, Syncope, Dyspnea on Exertion , PND, Lower Extremity Edema, Orthopnea, Claudication Gastrointestinal: DENIES: Abdominal pain, Black stools, Bloody stools, Constipation, Diarrhea, Nausea, Vomiting, Difficulty Swallowing, Anorexia Genitourinary: DENIES: Sexual dysfunction, Urinary frequency, Urinary incontinence, Urgency, Hematuria, Dysuria, Nocturia, Penile Discharge, Testicular Pain, Testicular Swelling Musculoskeletal: DENIES: Joint pain, Muscle aches, Stiffness, Joint Swelling, Back pain, Neck pain Integumentary: DENIES: Abnormal pigmentation, Nail changes, Pruritus, Rash Immunologic/allergic: DENIES: Eczema, Urticaria Psychiatric: COMPLAINS OF: Depression Past Family Social History Coded Allergies: No Known Allergies (Verified , 12/01/16) Past Medical History Patient medically cleared ED Reported Medications [Vistaril] No Conflict Check 01/02/17 Sertraline (Zoloft)100 Mg [id number] Mg PO DAILY #30 TAB Ref 0 01/02/17 Discontinued Reported Medications Sertraline (Zoloft)100 Mg [id number] Mg PO DAILY #30 TAB Ref 0 11/10/16 Family History Patient denies mental health and family of origin Social History Patient divorce from has multiple small children that he is not close to Patient's Strengths (min. 2) Patient verbal irritable [facility] care Physical Exam She seen screened in ED exam reviewed and agreed with Vital Signs Vital Signs Date Time Temp Pulse Resp B/P Pulse Ox O2 Delivery O2 Flow Rate FiO2 01/03/17 11:02 97.3 68 18 97/57 98 01/02/17 22:10 Room Air I/O 01/02/17 01/02/17 01/03/17 08:00 16:00 00:00 Output Total 800 ml Balance -800 ml Mental Status Examination Alert oriented then slender Afro-Malagasy male laying calmly in his contact in J pod is cooperative is somewhat guarded with fair eye contact Appearance Fairly clean innate Speech: Unremarkable Orientation: x3 Memory: Unremarkable Thought Process: Logical Thought Content: Unremarkable Language Fair Fund of Knowledge Fair Hallucination Type: None (denies) Attention and Concentration: Other (fair) Suicidal Ideation: No (denies to me) Previous Suicide Attempts: No Homicidal Ideation: No Previous Homicide Attempts: No Insight: Poor Judgment: Poor Affect: Other (slight decreased range intensity) Mood: Euthymic (to mildly dysphoric) Motor Activity: Normal gait Assessment & Plan Problem List: (1) Substance induced mood disorder ICD Code: F19.94 (2) Polysubstance abuse ICD Code: F19.10 (3) Adjustment disorder with mixed disturbance of emotions and conduct ICD Code: F43.25 Assessment & Plan Estimated LOS: days patient does not meet Martinez criteria will lift Michelle act. Okay by psych for discharge when medically clear and stable, no Rx by me, he may follow through with this clinician through [facility] act will also recommend voluntary assessment substance abuse through [facility]. He also continues on previously scheduled medications through [facility] act Discharge Planning See above Request HC Surrog/Guard Advoc?: No Hilton Zamudio MD Jan 03, 2017 11:17
== END 2017-01-03 11:30 | disposition home or self-care (01) ==
LOC: NEPE 03:43 → NEPJ 01-03 11:30
DX: F19.94 Other psychoactive substance use, unspecified with psychoactive substance-induced mood disorder (principal); F19.10 Other psychoactive substance abuse, uncomplicated; F43.25 Adjustment disorder with mixed disturbance of emotions and conduct; F17.200 Nicotine dependence, unspecified, uncomplicated; Z87.39 Personal history of other diseases of the musculoskeletal system and connective tissue; Z87.09 Personal history of other diseases of the respiratory system; Z86.59 Personal history of other mental and behavioral disorders; Z86.14 Personal history of Methicillin resistant Staphylococcus aureus infection; Z86.69 Personal history of other diseases of the nervous system and sense organs
CPT/HCPCS: 80053; 80307; 85025; 99285

== ENCOUNTER 2017-01-30 22:18 | Emergency (ER) | payer OTHER ==
[~2017-01-30] VITALS: Ht 167.6 cm; Wt 66.0 kg
[~2017-01-30 22:18] MED LIST changes: +VISTARIL
[2017-01-30 22:35] VITALS: BP 125/70; PULSE 79; RESP 14; TEMP 98.4; O2SAT 99
--- NOTE | 2017-01-30 22:38 | PD ---
HPI . BA/hallucinations Chief Complaint: Psychiatric Symptoms Time Seen by Provider: 22:38 Travel History International Travel<30 days: No Contact w/Intl Traveler<30days: No Traveled to known affect area: No History of Present Illness HPI 31-year-old male here under Martinez act. He was brought in by the police department. Patient says that people are trying to kill him. He says he can feel them around him, but is not able to see them. He tells me that he will kill himself before they kill him. This has been going on for the past several weeks. He admits to drug usage. He has no other specific complaints. Patient is very paranoid. PFSH Past Medical History Arthritis: Yes Asthma: Yes Bipolar Disorder: Yes Depression: Yes Diminished Hearing: No Integumentary: Yes (HX MRSA) Seizures: Yes Social History Alcohol Use: Yes (DAILY) Tobacco Use: Yes (1 ppd) Substance Use: Yes (15+beers/day, cocaine daily, marajuana daily; 5 cigarettes/ day) Allergies-Medications (Allergen,Severity, Reaction): Coded Allergies: No Known Allergies (Verified , 01/30/17) Reported Meds & Prescriptions Reported Meds & Active Scripts Active Reported [Vistaril] Zoloft (Sertraline HCl) 100 Mg Tab 100 Mg PO DAILY Review of Systems General / Constitutional: No: Fever Eyes: No: Visual changes HENT: No: Headaches Cardiovascular: No: Chest Pain or Discomfort Respiratory: No: Shortness of Breath Gastrointestinal: No: Abdominal Pain Genitourinary: No: Dysuria Musculoskeletal: No: Pain Skin: No Rash Neurologic: No: Weakness Psychiatric: Positive: Disorder of Thought, No: Depression Endocrine: No: Polydipsia Hematologic/Lymphatic: No: Easy Bruising Physical Exam Narrative GENERAL: AAO x 3, no acute distress, SKIN: Warm and dry. No visible rashes or bruising. HEAD: Normocephalic and atraumatic. EYES: No scleral icterus. No injection or drainage. EOM intact, ENT: No nasal drainage noted. Mucous membranes pink. Airway patent. NECK: Supple, trachea midline. No JVD. CARDIOVASCULAR: Regular rate and rhythm without murmurs, gallops, or rubs. RESPIRATORY: Breath sounds equal bilaterally. No accessory muscle use. No rhonchi or rales. GASTROINTESTINAL: Abdomen soft, non-tender, nondistended. EXTREMITIES: No cyanosis or edema. BACK: No obvious deformity. NEURO: follows commands, answers questions appropriately, PSYCH: AAO x 3, paranoid, staring out the door Data Data Last Documented VS Vital Signs Date Time Temp Pulse Resp B/P Pulse Ox O2 Delivery O2 Flow Rate FiO2 01/31/17 05:52 97.0 78 18 105/54 96 01/30/17 22:42 Room Air Orders Psych Screen (01/30/17 22:39) Drug Screen, Random Urine (01/30/17 22:39) Alcohol (Ethanol) (01/30/17 22:39) ^ Sitter (01/30/17 22:45) Diet Regular Basic (01/31/17 Breakfast) Labs Laboratory Tests Test 01/30/17 01/31/17 22:58 03:10 Ethyl Alcohol Level 117 MG/DL Urine Opiates Screen NEG Urine Barbiturates Screen NEG Urine Amphetamines Screen NEG Urine Benzodiazepines Screen NEG Urine Cocaine Screen POS Urine Cannabinoids Screen POS MDM Medical Decision Making Medical Screen Exam Complete: Yes Emergency Medical Condition: Yes Medical Record Reviewed: Yes Differential Diagnosis paranoia, drug induced mood disorder, suicidal ideation, hallucinations Narrative Course 31-year-old male here with paranoia. He was recently in the hospital on January 02. Labs were unremarkable. I have ordered a tox screen and alcohol level. Patient is medically cleared for psych screen. I've ordered a sitter as he poses a risk of a eloping. Diagnosis Primary Impression: Paranoid behavior Condition: Stable Dianne Calero Jan 30, 2017 22:38
[2017-01-30 22:42] VITALS: BP 125/70; PULSE 80; RESP 14; O2SAT 99
[2017-01-31 03:40] LABS: AMPHETAMINE, URINE NEG (NEG); BARBITURATES, URINE NEG (NEG); COCAINE, URINE POS (NEG)
[2017-01-31 05:52] VITALS: BP 105/54; PULSE 78; RESP 18; TEMP 97; O2SAT 96
[2017-01-31] MEDS ORDERED: IBUPROFEN 800 MG TAB PO ONE (08:30)
[2017-01-31 16:19] VITALS: BP 105/54; PULSE 78; RESP 18; O2SAT 96
--- NOTE | 2017-01-31 16:36 | PD.PSY.CON ---
Provisional Diagnosis Admission Date Date of consultation 01/31/2017 [place] I. 1. Polysubstance abuse 2. Suspect component of malingering for assisted [place] II. 1. Antisocial personality traits. History of Present Illness Service Psychiatry Consult Requested By Emergency department Reason for Consult Martinez act Primary Care Physician No Primary Care Physician [facility] Mr. Suggs is a 31-year-old male with a reported history of antisocial personality disorder and depression who presents under a Martinez act alleging that he told officers that people were trying to kill him, and he was going to kill himself instead. His urine toxicology on presentation here was positive for cocaine, cannabinoids, alcohol level 117. Reviewing the electronic medical record, I note the patient was seen in consultation by Dr. Zamudio in December of this year with a diagnosis of drug-induced mood disorder. Patient seen and examined. Chart reviewed. Case discussed with nursing staff. No evidence of any suicidality or homicidality while the patient has been under observation in the J-pod. On my examination today, the patient is somewhat uncooperative and flippant. Antisocial personality traits are noted. He seems to be quite keen on getting admitted to the inpatient psychiatric unit. However, he has a dearth of psychiatric symptoms. He denies any suicidal or homicidal ideation. Of the former he says that making a suicide attempt would be "too painful." Affect is a little dysphoric but there are no real depressive or hypomanic/manic symptoms. He denies any audiovisual hallucinations, and I can elicit no delusional material at this time. No paranoia. Remainder of the psychiatric ROS is negative. Past psychiatric history: Patient self reports a history of antisocial personality disorder and depression. He is not currently under the care of a psychiatrist. He says that he was admitted a month ago to [facility]. He endorses a history of suicide attempts by cutting. Family history: The patient reports a family history of bipolar disorder and schizophrenia. Chemical dependency history: Patient reports use of cocaine, cannabis and alcohol. Social history: Patient is homeless. He is high school educated. He says that he occasionally works. He denies any or legal history. Denies any access to guns or firearms. He is single with no children. Review of Systems Except as stated in HPI: all other systems reviewed are Neg Past Family Social History Coded Allergies: No Known Allergies (Verified , 01/30/17) Past Medical History See electronic medical record Reported Medications [Vistaril] No Conflict Check 01/02/17 Sertraline (Zoloft)100 Mg [id number] Mg PO DAILY #30 TAB Ref 0 01/02/17 On no medications currently Patient's Strengths (min. 2) Able to access clinical care. Verbally fluent. Physical Exam Physical exam completed by ED provider. On my examination today, the patient appears to be in no acute physical distress. No motor abnormalities noted. Labs and vitals reviewed: Vital Signs Vital Signs Date Time Temp Pulse Resp B/P Pulse Ox O2 Delivery O2 Flow Rate FiO2 01/31/17 16:19 78 18 105/54 96 Room Air 01/31/17 05:52 97.0 Lab Results Laboratory Tests Test 01/30/17 01/31/17 22:58 03:10 Ethyl Alcohol Level 117 MG/DL Urine Opiates Screen NEG Urine Barbiturates Screen NEG Urine Amphetamines Screen NEG Urine Benzodiazepines Screen NEG Urine Cocaine Screen POS Urine Cannabinoids Screen POS Mental Status Examination Patient is in hospital attire. Patient is fairly well groomed and maintaining basic hygiene. Patient is awake and alert and oriented person and hospital at least. No evidence of delirium. No motor abnormalities appreciated. Speech is within normal limits for rate, tone, volume. Language and fund of knowledge average. Focus and concentration intact. Memory grossly intact on clinical exam. Mood is somewhat dysphoric and affect is consistent with stated mood. Thought processes linear. No delusions elicited. No audiovisual hallucinations and does not appear internally stimulated. Denies suicidal or homicidal ideation. Insight and judgment likely chronically poor. Previous Suicide Attempts: No Previous Homicide Attempts: No Assessment & Plan Problem List: (1) Polysubstance abuse ICD Code: F19.10 Assessment & Plan 31-year-old male with psychiatric history as detailed above who presents under a Martinez act. Minimal psychiatric symptoms now. What psychiatric symptoms he may have had on initial presentation, I suspect were likely substance-induced or perhaps as part of an effort to malinger for assisted. There is no evidence of a mental illness as defined under the Martinez act. He does not describe any current suicidal or homicidal ideation. He appears to be attending to his basic needs. Synthesizing all of this information and based on the available evidence, the patient does not meet Martinez act criteria. I have lifted the Martinez act. The patient does not meet criteria for inpatient psychiatric hospitalization at this time. He would benefit from outpatient mental health and chemical dependency evaluation and treatment, and I've asked the nurse to provide the appropriate referrals. I counseled the patient to abstain from drugs and alcohol. I counseled the patient regarding warning signs for need to return to the psychiatric emergency room as part of the general safety plan. Kamari Handy MD Jan 31, 2017 16:36
== END 2017-01-31 17:32 | disposition home or self-care (01) ==
LOC: NEPE 22:18 → NEPJ 01-31 17:32
DX: Z02.89 Encounter for other administrative examinations (principal); F60.2 Antisocial personality disorder; F19.10 Other psychoactive substance abuse, uncomplicated; F10.10 Alcohol abuse, uncomplicated; F17.210 Nicotine dependence, cigarettes, uncomplicated; J45.909 Unspecified asthma, uncomplicated
CPT/HCPCS: 80307; 99285

== ENCOUNTER 2017-02-09 02:15 | Emergency (ER) | payer OTHER ==
[~2017-02-09] VITALS: Ht 167.6 cm; Wt 65.0 kg
[2017-02-09 02:31] VITALS: BP 86/51; PULSE 81; RESP 16; TEMP 98.8; O2SAT 98
--- NOTE | 2017-02-09 02:52 | PD ---
HPI Chief Complaint: Psychiatric Symptoms Time Seen by Provider: 02:50 Travel History International Travel<30 days: No Contact w/Intl Traveler<30days: No Traveled to known affect area: No History of Present Illness HPI 31-year-old black male presents to emergency department under Martinez act by PD. Patient made contact with police notifying them he was feeling suicidal. He states that people don't take him seriously. He would like something to eat. He does admit to drugs and alcohol. He states that he will kill 3 people as well as himself. The patient will not elaborate on his plan. He denies any toxic ingestions. No recent illness. PFSH Past Medical History Arthritis: Yes Asthma: Yes Bipolar Disorder: Yes Depression: Yes Diminished Hearing: No Psychiatric: Yes Integumentary: Yes (HX MRSA) Immunizations Current: Yes Seizures: Yes Tetanus Vaccination: > 5 Years Past Surgical History Surgical History: No Previous Surgery Social History Alcohol Use: Yes (DAILY) Tobacco Use: Yes (1 ppd) Substance Use: Yes Allergies-Medications (Allergen,Severity, Reaction): Coded Allergies: Haldol (Unverified Allergy, Mild, 02/09/17) Morphine (Unverified Allergy, Mild, LOCKJAW, 02/09/17) Reported Meds & Prescriptions Reported Meds & Active Scripts Active Reported [Vistaril] Zoloft (Sertraline HCl) 100 Mg Tab 100 Mg PO DAILY Review of Systems Except as stated in HPI: all other systems reviewed are Neg Psychiatric: Positive: Depression, Suicidal Ideations, Mood Disorder, Substance Abuse, Homicidal Ideation, No: Anxiety, Disorder of Thought Physical Exam Narrative GENERAL: Well-nourished, well-developed patient. SKIN: Warm and dry. HEAD: Normocephalic and atraumatic. EYES: No scleral icterus. No injection or drainage. ENT: No nasal drainage noted. Mucous membranes pink. Airway patent. NECK: Supple, trachea midline. Moves head freely without obvious discomfort. CARDIOVASCULAR: Regular rate and rhythm without murmurs, gallops, or rubs. RESPIRATORY: Breath sounds equal bilaterally. No accessory muscle use. GASTROINTESTINAL: Abdomen soft, non-tender, nondistended. EXTREMITIES: No cyanosis or edema. BACK: Nontender without obvious deformity. No CVA tenderness. NEURO: Patient is alert and oriented. no sensorimotor deficits. Nonfocal. Normal speech. PSYCH: No delusions. No auditory or visual hallucinations. Data Data Last Documented VS Vital Signs Date Time Temp Pulse Resp B/P Pulse Ox O2 Delivery O2 Flow Rate FiO2 02/09/17 03:15 93 16 98/55 98 Room Air 02/09/17 02:31 98.8 Orders Drug Screen, Random Urine (02/09/17 02:48) Alcohol (Ethanol) (02/09/17 02:48) Haloperidol Inj (Haldol Inj) (02/09/17 03:00) Lorazepam Inj (Ativan Inj) (02/09/17 03:00) Restraints Violent (02/09/17 02:59) Haloperidol Inj (Haldol Inj) (02/09/17 03:15) Lorazepam Inj (Ativan Inj) (02/09/17 03:15) Ziprasidone Inj (Geodon Inj) (02/09/17 03:30) Labs Laboratory Tests Test 02/09/17 02/09/17 03:00 03:05 Ethyl Alcohol Level 166 MG/DL Urine Opiates Screen NEG Urine Barbiturates Screen NEG Urine Amphetamines Screen NEG Urine Benzodiazepines Screen NEG Urine Cocaine Screen POS Urine Cannabinoids Screen NEG MDM Medical Decision Making Medical Screen Exam Complete: Yes Emergency Medical Condition: Yes Medical Record Reviewed: Yes Interpretation(s) Laboratory Tests Test 02/09/17 02/09/17 03:00 03:05 Ethyl Alcohol Level 166 MG/DL Urine Opiates Screen NEG Urine Barbiturates Screen NEG Urine Amphetamines Screen NEG Urine Benzodiazepines Screen NEG Urine Cocaine Screen POS Urine Cannabinoids Screen NEG Differential Diagnosis MDM: High Differential diagnoses: Schizophrenia, schizoaffective disorder, bipolar, anxiety, depression, adjustment reaction, mood disorder NOS, ODD, depressive disorder NOS, dementia, dementia with agitation, psychosis NOS, substance induced mood disorder, intermittent explosive disorder, Asperger syndrome, infection,electrolyte abnormality, malingering. Narrative Course Mental health screening discussed with the patient. Psychiatric screen ordered. The patient has become increasingly agitated and combative during his stay here in the ER. He is becoming threatening to the medical staff. The patient is placed in a violent restraints and is medicated with Ativan 2 mg IV. We are initially going to give the patient how long IV as well but the patient reports allergy to Haldol. An order for Geodon 10 mg IM if patient continues to remain combative. The patient will be taken out of restraints per protocol. The patient's been medically cleared This is medical clearance for psychiatric admission, polysubstance abuse Diagnosis Primary Impression: Medical clearance for psychiatric admission Additional Impression: Polysubstance abuse Condition: Stable Jean Celis Feb 09, 2017 02:52
[2017-02-09] MEDS ORDERED: HALOPERIDOL LACTATE 5 MG/ML AMP IM ONE (03:00)
[2017-02-09] MEDS ORDERED: LORazepam 2 MG/ML VIAL IM ONE (03:00)
[2017-02-09 03:15] VITALS: BP 98/55; PULSE 93; RESP 16; O2SAT 98
[2017-02-09] MEDS ORDERED: HALOPERIDOL LACTATE 5 MG/ML AMP IV PUSH ONE (03:15)
[2017-02-09] MEDS ORDERED: LORazepam 2 MG/ML VIAL IV PUSH ONE (03:15)
[2017-02-09] MEDS ORDERED: ZIPRASIDONE MESYLATE 20 MG VIAL IM ONE (03:30)
[2017-02-09 06:31] VITALS: RESP 18
--- NOTE | 2017-02-09 15:50 | PD ---
History of Present Illness Chief Complaint: Psychiatric Symptoms Time Seen by Provider: 15:45 Travel History International Travel<30 Days: No Contact w/Intl Traveler<30days: No Known affected area: No Legal Status Legal Status: Martinez Act Martinez Act Signed By: Galindo Roman Martinez Act Comment: 2016 @ 0150 History of Present Illness: Mr. saldaña is a 31-year-old male brought here under a Martinez act for making threats of suicide and homicide. The patient is rude, cursing and demanding with this physician. He insists he needs a psychiatry bed for "a couple of days to clear my head". Patient is once again positive for cocaine. He has a significant history of substance abuse. He is homeless and states he does not have family members who live locally. This physician feels the patient is malingering for a hospital bed and it would be counter therapeutic and enabling to give into his manipulations. He is being referred to [facility] if he wishes to have treatment for his substance abuse. PFSH Past Medical History Arthritis: Yes Asthma: Yes Bipolar Disorder: Yes Depression: Yes Diminished Hearing: No Psychiatric: Yes Integumentary: Yes (HX MRSA) Immunizations Current: Yes Seizures: Yes Tetanus Vaccination: > 5 Years Past Surgical History Surgical History: No Previous Surgery Psychiatric History Psychiatric History Hx Psychiatric Treatment: HX OF DEPRESSION. This physician does not see any significant objective clinical evidence of a krissy avery mood disorder that is unrelated to his substance abuse and circumstances. History of Inpatient Treatment: Yes Guns or firearms in home: No Social History Hx Alcohol Use: Yes (DAILY) Hx Tobacco Use: Yes (1 ppd) Hx Substance Use: Yes Substance Use Type: Alcohol, Crack, Marijuana Hx of Substance Use Treatment: No Allergies-Medications (Allergen,Severity, Reaction): Coded Allergies: haloperidol (Unverified Allergy, Mild, 02/09/17) morphine (Unverified Allergy, Mild, LOCKJAW, 02/09/17) Reported Meds & Prescriptions Reported Meds & Active Scripts Active Reported [Vistaril] Zoloft (Sertraline HCl) 100 Mg Tab 100 Mg PO DAILY Review of Systems Except as stated in HPI: all other systems reviewed are Neg Exam Alert: Yes [place]: Person, Place, Date, Situation Mood: Oppositional Affect: Other Speech: Clear, Logical Eye Contact: Normal Memory Intact: Immediate, Recent, Remote Suicidal: Ideation Homicidal: Ideation Insight/Judgement Adequate MDM Medical Decision Making Medical Record Reviewed: Yes Assessment/Plan This physician reviewed the patient's past psychiatric records and spoke with his nurse. The patient is again felt to be threatening, manipulative, substance abusing and not primarily experiencing a major mental illness outside of his substance abuse that requires psychiatric admission. This physician understands the patient may "act out" in a dangerous way to himself or others. However, that is unpredictable and unavoidable if he chooses to do so. If he does something of that nature, this physician feels he is competent to make his own decisions and should accept the consequences for those decisions. Finally, it remains counter therapeutic and enabling to give in to this patient's manipulations. Orders Drug Screen, Random Urine (02/09/17 02:48) Alcohol (Ethanol) (02/09/17 02:48) Haloperidol Inj (Haldol Inj) (02/09/17 03:00) Lorazepam Inj (Ativan Inj) (02/09/17 03:00) Restraints Violent (02/09/17 02:59) Haloperidol Inj (Haldol Inj) (02/09/17 03:15) Lorazepam Inj (Ativan Inj) (02/09/17 03:15) Ziprasidone Inj (Geodon Inj) (02/09/17 03:30) Psych Screen (02/09/17 05:49) Diet Regular Basic (02/09/17 Breakfast) Diet Regular Basic (02/09/17 Lunch) Diet Regular Basic (02/09/17 Dinner) Results Vital Signs Date Time Temp Pulse Resp B/P Pulse Ox O2 Delivery O2 Flow Rate FiO2 02/09/17 06:31 18 02/09/17 03:15 93 16 98/55 98 Room Air 02/09/17 02:31 98.8 81 16 86/51 98 Room Air Laboratory Tests Test 02/09/17 02/09/17 03:00 03:05 Ethyl Alcohol Level 166 Urine Opiates Screen NEG Urine Barbiturates Screen NEG Urine Amphetamines Screen NEG Urine Benzodiazepines Screen NEG Urine Cocaine Screen POS Urine Cannabinoids Screen NEG Diagnosis Primary Impression: Adjustment disorder with mixed disturbance of emotions and conduct Additional Impression: Cocaine abuse Condition: Stable Problem Qualifiers Pete Delcid MD Feb 09, 2017 15:50
== END 2017-02-09 17:10 | disposition home or self-care (01) ==
LOC: NEPD 02:15 → NEPJ 17:10
DX: Z02.89 Encounter for other administrative examinations (principal); F43.29 Adjustment disorder with other symptoms; F10.10 Alcohol abuse, uncomplicated; F14.10 Cocaine abuse, uncomplicated; F17.290 Nicotine dependence, other tobacco product, uncomplicated
CPT/HCPCS: 80307; 96372; 96374; 99285; J2060; J3486

== ENCOUNTER 2017-02-12 08:49 | Observation (INO) | payer SELFPAY ==
[~2017-02-12] VITALS: Ht 170.2 cm; Wt 65.0 kg
[2017-02-12 08:57] VITALS: BP 88/50; PULSE 78; RESP 18; TEMP 97.9; O2SAT 97
[2017-02-12] MEDS ORDERED: SODIUM CHLORIDE 0.9% FLUSH 10 ML FLUSH IVF PRN (09:00)
[2017-02-12 09:04] VITALS: BP 88/50; PULSE 73; RESP 18; TEMP 97.9; O2SAT 97
[2017-02-12] MEDS ORDERED: ABIL2TAB2 PO (09:12)
[2017-02-12 09:21] LABS: AUTOMATED NEUTROPHIL # 7.9 TH/MM3 (1.8-7.7); BASOPHIL % 0.4 % (0.0-2.0); EOSINOPHIL # 0.3 TH/MM3 (0-0.4); EOSINOPHIL % 2.3 % (0.0-4.0); HEMATOCRIT 39.1 % (39.0-51.0); HEMO FLAGS DIFF FINAL; LYMPHOCYTE # 1.9 TH/MM3 (1.0-4.8); MEAN CELL VOLUME 87.3 FL (80.0-100.0); MEAN CORPUSCULAR HEMOGLOBIN 29.3 PG (27.0-34.0); MEAN CORPUSCULAR HGB CONC 33.6 % (32.0-36.0); MONO % 9.6 % (0.0-8.0); NEUT % 70.7 % (16.0-70.0); PLATELET COUNT 255 TH/MM3 (150-450); RED BLOOD COUNT 4.48 MIL/MM3 (4.50-5.90); WHITE BLOOD COUNT 11.2 TH/MM3 (4.0-11.0)
[2017-02-12 09:33] LABS: ALT (GPT) 20 U/L (12-78)
--- NOTE | 2017-02-12 09:33 | RADRPT ---
EXAM DATE/TIME: 02/12/2017 09:01 [facility] COMPARISON: CHEST SINGLE AP, December 01, 2016, 4:20. INDICATIONS : Chest pain, nausea, vomiting and diarrhea. MEDICAL HISTORY : None. SURGICAL HISTORY : None. ENCOUNTER: Initial ACUITY: 1 day PAIN SCORE: 10/10 LOCATION: Bilateral chest FINDINGS: A single view of the chest demonstrates the lungs to be symmetrically aerated without evidence of mas s, infiltrate or effusion. The cardiomediastinal contours are unremarkable. Osseous structures are intact. CONCLUSION: No acute disease. Johnny Calhoun MD on February 12, 2017 at 9:30 Board Certified Radiologist. This report was verified electronically.
[2017-02-12 09:35] LABS: PROTHROMBIN TIME - PATIENT 11.3 SEC (9.8-11.6)
[2017-02-12 09:36] LABS: ANION GAP 3 MEQ/L (5-15); AST (GOT) 21 U/L (15-37); BLOOD UREA NITROGEN 9 MG/DL (7-18); CHLORIDE 112 MEQ/L (98-107); GLOMERULAR FILTRATION RATE 95 ML/MIN (>89); MAGNESIUM 1.6 MG/DL (1.5-2.5); POTASSIUM 3.9 MEQ/L (3.5-5.1); SODIUM (NA) 139 MEQ/L (136-145)
[2017-02-12 09:37] LABS: ALKALINE PHOSPHATASE 81 U/L (45-117); APTT (PATIENT) 24.8 SEC (24.3-30.1); CREATINE KINASE 193 U/L (39-308); TOTAL BILIRUBIN ADULT 0.8 MG/DL (0.2-1.0)
[2017-02-12 09:49] LABS: CKMB LESS THAN 0.5 NG/ML (0.5-3.6)
--- NOTE | 2017-02-12 09:59 | PD ---
HPI Chief Complaint: Chest Pain Time Seen by Provider: 08:55 Travel History International Travel<30 days: No Contact w/Intl Traveler<30days: No Traveled to known affect area: No History of Present Illness HPI Patient is a 31-year-old male endorses cocaine use yesterday presents emergency Department with chest pain. He states fairly intense in the middle of his chest without radiation but does endorse shortness breath with it. States she' s never had heart problems before is a cigarette smoker. No family history of heart disease. States symptoms are somewhat resolved by time he is arrived to the emergency department. PFSH Past Medical History Arthritis: Yes Asthma: Yes (denies) Bipolar Disorder: Yes (denies) Depression: Yes Diminished Hearing: No Psychiatric: Yes Integumentary: Yes (HX MRSA 4 YRS AGO) Immunizations Current: Yes Seizures: Yes Past Surgical History Surgical History: No Previous Surgery Social History Alcohol Use: Yes (DAILY) Tobacco Use: Yes (1 ppd) Substance Use: Yes (cocaine the day before yesterday) Allergies-Medications (Allergen,Severity, Reaction): Coded Allergies: No Known Allergies (Verified Allergy, Unknown, 02/12/17) Reported Meds & Prescriptions Reported Meds & Active Scripts Active Ibuprofen 600 Mg Tab 600 Mg PO Q6H PRN Non-Aspirin Pain Relief ES (Acetaminophen) 500 Mg Tab 1,000 Mg PO Q6HR PRN Review of Systems Except as stated in HPI: all other systems reviewed are Neg Physical Exam Narrative GENERAL: [Well-developed well-nourished no obvious distress SKIN: Focused skin assessment warm/dry. HEAD: Atraumatic. Normocephalic. EYES: Pupils equal and round. No scleral icterus. No injection or drainage. ENT: No nasal bleeding or discharge. Mucous membranes pink and moist. NECK: Trachea midline. No JVD. CARDIOVASCULAR: Regular rate and rhythm. No murmur appreciated. 2+ bilateral equal pulses in all 4 extremities. RESPIRATORY: No accessory muscle use. Clear to auscultation. Breath sounds equal bilaterally. GASTROINTESTINAL: Abdomen soft, non-tender, nondistended. Hepatic and splenic margins not palpable. MUSCULOSKELETAL: No obvious deformities. No clubbing. No cyanosis. No edema. NEUROLOGICAL: Awake and alert. No obvious cranial nerve deficits. Motor grossly within normal limits. Normal speech. PSYCHIATRIC: Appropriate mood and affect; insight and judgment normal. Data Data Last Documented VS Vital Signs Date Time Temp Pulse Resp B/P Pulse Ox O2 Delivery O2 Flow Rate FiO2 02/12/17 09:04 97.9 73 18 88/50 97 Nasal Cannula 2 Orders Electrocardiogram (02/12/17 08:55) Ckmb (Isoenzyme) Profile (02/12/17 08:55) Complete Blood Count With Diff (02/12/17 08:55) Comprehensive Metabolic Panel (02/12/17 08:55) Magnesium (Mg) (02/12/17 08:55) Prothrombin Time / Inr (Pt) (02/12/17 08:55) Act Partial Throm Time (Ptt) (02/12/17 08:55) Troponin I (02/12/17 08:55) Chest, Single Ap (02/12/17 08:55) Ecg Monitoring (02/12/17 08:55) Iv Access Insert/Monitor (02/12/17 08:55) Oximetry (02/12/17 08:55) Oxygen Administration (02/12/17 08:55) Sodium Chloride 0.9% Flush (Ns Flush) (02/12/17 09:00) CKMB (02/12/17 09:00) CKMB% (02/12/17 09:00) Nitroglycerin Sl (Nitrostat Sl) (02/12/17 10:00) Admit Order (Ed Use Only) (02/12/17 ) Labs Laboratory Tests Test 02/12/17 09:00 White Blood Count 11.2 TH/MM3 Red Blood Count 4.48 MIL/MM3 Hemoglobin 13.1 GM/DL Hematocrit 39.1 % Mean Corpuscular Volume 87.3 FL Mean Corpuscular Hemoglobin 29.3 PG Mean Corpuscular Hemoglobin 33.6 % Concent Red Cell Distribution Width 13.0 % Platelet Count 255 TH/MM3 Mean Platelet Volume 7.8 FL Neutrophils (%) (Auto) 70.7 % Lymphocytes (%) (Auto) 17.0 % Monocytes (%) (Auto) 9.6 % Eosinophils (%) (Auto) 2.3 % Basophils (%) (Auto) 0.4 % Neutrophils # (Auto) 7.9 TH/MM3 Lymphocytes # (Auto) 1.9 TH/MM3 Monocytes # (Auto) 1.1 TH/MM3 Eosinophils # (Auto) 0.3 TH/MM3 Basophils # (Auto) 0.0 TH/MM3 CBC Comment DIFF FINAL Differential Comment Prothrombin Time 11.3 SEC Prothromb Time International 1.0 RATIO Ratio Activated Partial 24.8 SEC Thromboplast Time Sodium Level 139 MEQ/L Potassium Level 3.9 MEQ/L Chloride Level 112 MEQ/L Carbon Dioxide Level 24.0 MEQ/L Anion Gap 3 MEQ/L Blood Urea Nitrogen 9 MG/DL Creatinine 1.08 MG/DL Estimat Glomerular Filtration 95 ML/MIN Rate Random Glucose 77 MG/DL Calcium Level 7.7 MG/DL Magnesium Level 1.6 MG/DL Total Bilirubin 0.8 MG/DL Aspartate Amino Transf 21 U/L (AST/SGOT) Alanine Aminotransferase 20 U/L (ALT/SGPT) Alkaline Phosphatase 81 U/L Total Creatine Kinase 193 U/L Creatine Kinase MB LESS THAN 0.5 NG/ML Troponin I LESS THAN 0.02 NG/ML Total Protein 6.2 GM/DL Albumin 2.9 GM/DL MDM Medical Decision Making Medical Screen Exam Complete: Yes Emergency Medical Condition: Yes Differential Diagnosis Cocaine use, chest pain, ACS, AMI. Narrative Course Patient is a 31-year-old male admits to using cocaine yesterday presents emergency Department with chest pain is chest without radiation. Mild shortness of breath no nausea no vomiting. EKG within normal limits. Troponin negative. Discussed with him that his pain is atypical but cannot exclude ACS given his cocaine use. He was offered admission to the chest pain observation unit and he is agreeable. Patient was counseled that cocaine can cause heart attacks and recommended immediate stopping use of cocaine as well as stopping cigarettes use secondary to multiple adverse health outcomes linked to it. Diagnosis Primary Impression: Chest pain Additional Impression: Cocaine abuse Disposition: 01 DISCHARGE HOME Condition: Stable Stuart Ace MD Feb 12, 2017 09:59
[2017-02-12] MEDS ORDERED: NITROGLYCERIN 0.4 MG SL 25 TABS/BTL SL ONE (10:00)
[2017-02-12 10:45] VITALS: BP 98/58; PULSE 76; RESP 17; O2SAT 100
[2017-02-12 10:55] VITALS: O2SAT 97
[2017-02-12] MEDS ORDERED: KETOROLAC TROMETHAMINE 30 MG/ML (IVP) VIAL IVP ONE (11:00)
[2017-02-12] MEDS ORDERED: ACETAMINOPHEN/HYDROcodone 325 MG/7.5 MG TAB PO PRN (11:00)
[2017-02-12] MEDS ORDERED: SODIUM CHLORIDE 0.9% FLUSH 5 ML FLUSH IVF PRN (11:00)
[2017-02-12] MEDS ORDERED: ONDANSETRON HCL 4 MG/2 ML VIAL IV PRN (11:00)
[2017-02-12] MEDS ORDERED: ACETAMINOPHEN 500 MG CPLT PO PRN (11:00)
--- NOTE | 2017-02-12 11:10 | HHI.HP ---
HPI Primary Care Physician No Primary Care Physician Chief Complaint Chest pain History of Present Illness Mr. Suggs is a 31-year-old male patient with a known medical history of multiple psych issues, substance induced personality disorder, cocaine abuse and depression who presented to the ED with complaints of chest pain. Patient states that the pain started 3 days ago and woke him up out of his sleep. States it is focused in his right side, constant in nature, worse with movement. When asked about the pain patient would not elaborate further regarding the characteristics of the pain. Does admit to associated shortness of breath and nausea. Denies any diaphoresis or vomiting. Admits to daily cocaine use, has not used in 2 days though. Admits to frequent marijuana use and smokes 3-4 cigarettes daily. Patient states he has a history of bipolar disorder and was recently gonzalez acted 3 days ago for suicidal and homicidal ideation, assessed by psychologist here and discharged to [facility]. He states he has not taken any of his medications for several months. Review of Systems Consitutional: DENIES: Fatigue, Fever, Chills HEENT: DENIES: Lightheadedness Respiratory: COMPLAINS OF: Shortness of breath Cardiovascular: COMPLAINS OF: Chest pain Gastrointestinal: COMPLAINS OF: Nausea Neurologic: DENIES: Tingling or numbness Past Family Social History Allergies: Coded Allergies: No Known Allergies (Verified Allergy, Unknown, 02/12/17) Past Medical History Arthritis Asthma Bipolar disorder Depression Seizure history Cocaine abuse Tobacco abuse Medication noncompliance Past Surgical History Denies any prior surgeries. Reported Medications Reported Meds & Active Scripts Active Reported Abilify (Aripiprazole) 2 Mg Tab 2 Mg PO DAILY [Vistaril] Zoloft (Sertraline HCl) 100 Mg Tab 100 Mg PO DAILY Active Ordered Medications Current Medications Medications (Trade) Dose Ordered Sig/Tha Route Start Time Stop Time Status Last Admin (NS Flush) 2 ml UNSCH PRN IVF 02/12/17 09:00 Family History Patient states that his mother and father both have a history of cardiovascular disease. Social History Patient admits to daily tobacco use, 3-4 cigarettes per day. Admits to alcohol use, 3-4 beers every couple days. Admits to daily cocaine use. Uses marijuana every couple days. Physical Exam Vital Signs Vital Signs Date Time Temp Pulse Resp B/P Pulse Ox O2 Delivery O2 Flow Rate FiO2 02/12/17 10:45 76 17 98/58 100 Nasal Cannula 2 02/12/17 09:04 97.9 73 18 88/50 97 Nasal Cannula 2 02/12/17 09:04 97 Nasal Cannula 2 02/12/17 09:04 72 18 97 Nasal Cannula 2 02/12/17 09:04 97.9 73 18 88/50 97 Nasal Cannula 2 02/12/17 08:57 97.9 78 18 88/50 97 Physical Exam GENERAL: Well-developed, well-nourished male patient, withdrawn affect, irritable, non-engaging. SKIN: Warm and dry. HEAD: Atraumatic. Normocephalic. EYES: Pupils equal and round. No scleral icterus. No injection or drainage. ENT: No nasal bleeding or discharge. Mucous membranes pink and moist. NECK: Trachea midline. No JVD. CARDIOVASCULAR: Regular rate and rhythm. No murmur appreciated. RESPIRATORY: No accessory muscle use. Clear to auscultation. Breath sounds equal bilaterally. GASTROINTESTINAL: Abdomen soft, non-tender, nondistended. MUSCULOSKELETAL: Extremities without clubbing, cyanosis, or edema. No obvious deformities. NEUROLOGICAL: Awake and alert. No obvious cranial nerve deficits. Motor grossly within normal limits. Five out of 5 muscle strength in the arms and legs. Normal speech. PSYCHIATRIC: Appropriate mood and affect; insight and judgment normal. Laboratory Laboratory Tests Test 02/12/17 09:00 White Blood Count 11.2 Red Blood Count 4.48 Hemoglobin 13.1 Hematocrit 39.1 Mean Corpuscular Volume 87.3 Mean Corpuscular Hemoglobin 29.3 Mean Corpuscular Hemoglobin 33.6 Concent Red Cell Distribution Width 13.0 Platelet Count 255 Mean Platelet Volume 7.8 Neutrophils (%) (Auto) 70.7 Lymphocytes (%) (Auto) 17.0 Monocytes (%) (Auto) 9.6 Eosinophils (%) (Auto) 2.3 Basophils (%) (Auto) 0.4 Neutrophils # (Auto) 7.9 Lymphocytes # (Auto) 1.9 Monocytes # (Auto) 1.1 Eosinophils # (Auto) 0.3 Basophils # (Auto) 0.0 CBC Comment DIFF FINAL Differential Comment Prothrombin Time 11.3 Prothromb Time International 1.0 Ratio Activated Partial 24.8 Thromboplast Time Sodium Level 139 Potassium Level 3.9 Chloride Level 112 Carbon Dioxide Level 24.0 Anion Gap 3 Blood Urea Nitrogen 9 Creatinine 1.08 Estimat Glomerular Filtration 95 Rate Random Glucose 77 Calcium Level 7.7 Magnesium Level 1.6 Total Bilirubin 0.8 Aspartate Amino Transf 21 (AST/SGOT) Alanine Aminotransferase 20 (ALT/SGPT) Alkaline Phosphatase 81 Total Creatine Kinase 193 Creatine Kinase MB LESS THAN 0.5 Troponin I LESS THAN 0.02 Total Protein 6.2 Albumin 2.9 Result Diagram: 02/12/17 0900 02/12/17 0900 Imaging Last 24 hours Impressions Chest X-Ray 02/12/17 0855 Signed Impressions: Service Date/Time: Sunday, February 12, 2017 09:01 - CONCLUSION: No acute disease. Johnny Calhoun MD Assessment and Plan Assessment and Plan * Chest pain suspect secondary to daily cocaine abuse: Admitted to chest pain center. Serial EKGs and serial troponins are ordered for ruling out purposes. Patient will be seen by Dr. Moya in the chest pain center and further recommendations will be determined. * Cocaine abuse: Encouraged cessation. * Tobacco abuse: Encouraged cessation. * History of psych issues and will not elaborate on diagnosis. Noncompliant with medications. Patient is stable at this time and agreeable to the plan. Moi Garcia Feb 12, 2017 11:10
[2017-02-12 11:28] VITALS: BP 90/51; PULSE 67; RESP 20; TEMP 97.7; O2SAT 97
[2017-02-12] MEDS ORDERED: SODIUM CHLORID 0.9% 500 ML INJ 500 ML IV ONE (13:00)
[2017-02-12 13:38] VITALS: BP 95/54
--- NOTE | 2017-02-12 13:52 | EKG ---
Date Performed: 02/12/2017 Time Performed: 09:02:00 PTAGE: 31 years EKG: Sinus rhythm NORMAL ECG PREVIOUS TRACING : 12/01/2016 10.12 Since previous tracing, no significant change noted DOCTOR: Kamari Moya Interpretating Date/Time 02/12/2017 13:52:45
--- NOTE | 2017-02-12 14:36 | HHI.DCPOC ---
Discharge Care Plan Diagnosis: (1) Chest pain (2) Tobacco abuse (3) Cocaine abuse Goals to Promote Your Health * To prevent worsening of your condition and complications * To maintain your health at the optimal level Directions to Meet Your Goals Take your medications as prescribed Follow your dietary instruction Follow activity as directed Keep your appointments as scheduled Take your immunizations and boosters as scheduled If your symptoms worsen call your PCP, if no PCP go to Urgent Care Center or Emergency Room Smoking is Dangerous to Your Health. Avoid second hand smoke Call the 24-hour hour crisis hotline for domestic abuse at Moi Garcia Feb 12, 2017 14:36
[2017-02-12] MEDS ORDERED: NON-500T13 PO (18:36)
[2017-02-12] MEDS ORDERED: IBUP-232 PO (18:36)
[2017-02-12] MEDS ORDERED: SODIUM CHLORIDE 0.9% FLUSH 5 ML FLUSH IVF SCH (21:00)
--- NOTE | 2017-02-13 10:55 | TR ---
Date Performed: 02/12/2017 Time Performed: 13:44:55 DOCTOR: Pete Velazquez DRUG LIST: CLINICAL HISTORY: REASON FOR TEST: Chest pain REASON FOR ENDING: OBSERVATION: CONCLUSION: Giovanny protocol performed. Test stopped secondary to fatigue. Chest discomfort unchan ged from prior to test. No ST segment changes notes. Recovery good, heart rate back to baseline. Maxi mum XC=218 Target HR Achieved=60.0% Maximum YI=952/60 Total Exercise Time=6:16 COMMENTS: Submaximal test, negative for ischemia.
--- NOTE | 2017-02-13 15:02 | EKG ---
Date Performed: 02/12/2017 Time Performed: 11:37:45 PTAGE: 31 years EKG: SINUS BRADYCARDIA BORDERLINE ECG PREVIOUS TRACING : 02/12/2017 09.02 Since previous tracing, no significant change noted DOCTOR: Pete Velazquez Interpretating Date/Time 02/13/2017 15:01:47
== END 2017-02-12 16:13 | disposition home or self-care (01) ==
LOC: NEPC 08:49 → NEDA 09:59 → NEPHCDU 11:24
PROVIDERS: ADMIT Internal Medicine Cardiovascular Disease; ATTEND Internal Medicine Cardiovascular Disease
DX: R07.89 Other chest pain (principal); F14.10 Cocaine abuse, uncomplicated; J45.909 Unspecified asthma, uncomplicated; M19.90 Unspecified osteoarthritis, unspecified site; F31.9 Bipolar disorder, unspecified; Z86.14 Personal history of Methicillin resistant Staphylococcus aureus infection; F17.210 Nicotine dependence, cigarettes, uncomplicated; F60.9 Personality disorder, unspecified; F12.90 Cannabis use, unspecified, uncomplicated; Z91.14 Patient's other noncompliance with medication regimen; Z79.899 Other long term (current) drug therapy
CPT/HCPCS: 71010; 80053; 82550; 82552; 83735; 84484; 85025; 85610; 85730; 93005; 93017; 96361; 96374; 99285; G0378; J1885; J7040

== ENCOUNTER 2017-02-12 16:00 | Emergency (ER) | payer SELFPAY ==
[~2017-02-12] VITALS: Ht 167.6 cm; Wt 63.5 kg
[~2017-02-12 16:00] MED LIST changes: +ABIL2TAB2 PO
[2017-02-12 16:06] VITALS: BP_SYST 10; BP_SYST 101; BP_DIAS 72; PULSE 61; RESP 15; TEMP 98.4; O2SAT 98
[2017-02-12] MEDS ORDERED: KETOROLAC TROMETHAMINE 60 MG/2 ML (IM) VIAL IM ONE (17:15)
--- NOTE | 2017-02-12 17:19 | PD ---
HPI Chief Complaint: Chest Pain Time Seen by Provider: 17:13 Travel History International Travel<30 days: No Contact w/Intl Traveler<30days: No Traveled to known affect area: No History of Present Illness HPI 31-year-old Afro-Cypriot male presents to the emergency department status post recent discharge from the chest pain center after echocardiogram and stress test today. He is complaining of ongoing right lower and middle rib pain which is sharp and worse with movement. He states she's had a cough occasional blood in his sputum. Patient denies fever, chills, or other symptoms. Vital signs in triage are stable with O2 sat of 98%, pulse of 61 bpm, and blood pressure of 101/72. Respiratory rate is 15 breaths per minute. The patient has no known drug allergies. PFSH Past Medical History Arthritis: Yes Asthma: Yes (denies) Bipolar Disorder: Yes (denies) Depression: Yes Diminished Hearing: No Psychiatric: Yes Integumentary: Yes (HX MRSA 4 YRS AGO) Immunizations Current: Yes Seizures: Yes Social History Alcohol Use: Yes (DAILY) Tobacco Use: Yes (1 ppd) Substance Use: Yes (cocaine the day before yesterday) Allergies-Medications (Allergen,Severity, Reaction): Coded Allergies: No Known Allergies (Verified Allergy, Unknown, 02/12/17) Reported Meds & Prescriptions Reported Meds & Active Scripts Active No Active Prescriptions or Reported Medications Review of Systems Except as stated in HPI: all other systems reviewed are Neg General / Constitutional: No: Fever Eyes: No: Visual changes HENT: No: Headaches Cardiovascular: Positive: Chest Pain or Discomfort (see history present illness.) Respiratory: Positive: Cough, Pleuritic Pain, No: Shortness of Breath Gastrointestinal: No: Abdominal Pain Genitourinary: No: Dysuria Musculoskeletal: No: Pain Skin: No Rash Neurologic: No: Weakness Psychiatric: No: Depression Endocrine: No: Polydipsia Hematologic/Lymphatic: No: Easy Bruising Physical Exam Narrative GENERAL: Patient appears in mild to moderate distress. SKIN: Warm and dry. Normal color. Normal turgor. No rash. HEAD: Atraumatic. Normocephalic. EYES: Pupils equal and round. No scleral icterus. No injection or drainage. ENT: No nasal bleeding or discharge. Mucous membranes pink and moist. Pharynx is clear. Airway is patent. TMs are clear bilaterally. No significant sinus tenderness or postnasal drip noted. NECK: Trachea midline. No bony tenderness or step-off. Range of motion is full CARDIOVASCULAR: Regular rate and rhythm. No murmurs gallops or rubs. RESPIRATORY: No accessory muscle use. Clear to auscultation. Breath sounds equal bilaterally. Patient has anterior right sternal border tenderness with palpation as well as along the right anterior lateral 10th rib, without obvious deformity, crepitus, or subcutaneous emphysema. GASTROINTESTINAL: Abdomen soft, non-tender, nondistended. Hepatic and splenic margins not palpable. MUSCULOSKELETAL: Extremities without clubbing, cyanosis, or edema. No obvious deformities. NEUROLOGICAL: Awake and alert. No obvious cranial nerve deficits. Motor grossly within normal limits. Five out of 5 muscle strength in the arms and legs. Normal speech. PSYCHIATRIC: Appropriate mood and affect; insight and judgment normal. Data Data Last Documented VS Vital Signs Date Time Temp Pulse Resp B/P Pulse Ox O2 Delivery O2 Flow Rate FiO2 02/12/17 16:06 98.4 61 15 101/72 98 Orders Ribs, Uni (W/Exp Cxr-Min 3vw) (02/12/17 17:12) Ketorolac Inj (Toradol Inj) (02/12/17 17:15) Ibuprofen (Motrin) (02/12/17 17:45) Ondansetron Inj (Zofran Inj) (02/12/17 18:15) MDM Medical Decision Making Medical Screen Exam Complete: Yes Emergency Medical Condition: Yes Medical Record Reviewed: Yes Differential Diagnosis Chest pain. Cough. Rib pain. Possible rib fracture. Pneumonia. Pulmonary embolism. Narrative Course Patient is medically stable at time of exam. Signs are very reassuring for low probability of pulmonary embolism, pneumonia, or other significant illness. Patient had a normal echocardiogram and stress test today. Chest x-ray and rib films are ordered. Patient is given Toradol 60 mg IM. Patient refuses Toradol as he received earlier today. Patient is given ibuprofen 800 mg by mouth. Rib films show no fracture or dislocation. No pneumothorax. No acute process in the chest per radiologist. Patient is discharged home with a prescription for ibuprofen 600 mg 4 times a day #40, in addition to acetaminophen 500 mg 2 tabs every 6 hours when necessary #60. Patient should follow-up with local primary care physician. Patient can return if symptoms worsen as needed. Diagnosis Primary Impression: Rib pain on right side Additional Impression: Costochondritis Referrals: [facility] call for appointment Patient Instructions: Costochondritis (ED), General Instructions Additional Instructions: Patient had a normal echocardiogram and stress test today. Chest x-ray and rib films are ordered. Patient is given Toradol 60 mg IM. Patient refuses Toradol as he received earlier today. Patient is given ibuprofen 800 mg by mouth. Rib films show no fracture or dislocation. No pneumothorax. No acute process in the chest per radiologist. Patient is discharged home with a prescription for ibuprofen 600 mg 4 times a day #40, in addition to acetaminophen 500 mg 2 tabs every 6 hours when necessary #60. Patient should follow-up with local primary care physician. Patient can return if symptoms worsen as needed. Med/Other Pt SpecificInfo: Prescription(s) given Scripts No Active Prescriptions or Reported Meds Disposition: 01 DISCHARGE HOME Condition: Stable Jasen Jones Feb 12, 2017 17:19
[2017-02-12] MEDS ORDERED: IBUPROFEN 800 MG TAB PO ONE (17:45)
[2017-02-12] MEDS ORDERED: ONDANSETRON HCL 4 MG/2 ML VIAL IM ONE (18:15)
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
[2017-02-12] MEDS ORDERED: IBUP-232 PO (18:36)
[2017-02-12] MEDS ORDERED: NON-500T13 PO (18:36)
== END 2017-02-12 19:38 | disposition home or self-care (01) ==
LOC: NEPD 16:00
DX: R07.81 Pleurodynia (principal); M94.0 Chondrocostal junction syndrome [Tietze]; M19.90 Unspecified osteoarthritis, unspecified site
CPT/HCPCS: 71101; 96372; 99284; J2405

== ENCOUNTER 2017-04-19 02:14 | Emergency (ER) | payer SELFPAY ==
[~2017-04-19 02:14] MED LIST changes: -ABIL2TAB2 PO; +IBUP-232 PO; +NON-500T13 PO; -VISTARIL; -ZOLO100T PO
[2017-04-19] MEDS ORDERED: SODIUM CHLOR 0.9% 1000 ML INJ 1,000 ML IV SCH (02:38)
[2017-04-19] MEDS ORDERED: SODIUM CHLORIDE 0.9% FLUSH 10 ML FLUSH IV FLUSH PRN (02:45)
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
== END 2017-04-19 07:05 | disposition home or self-care (01) ==
LOC: NEPE 02:14
DX: S01.511A Laceration without foreign body of lip, initial encounter (principal); F10.129 Alcohol abuse with intoxication, unspecified; Y04.0XXA Assault by unarmed brawl or fight, initial encounter
CPT/HCPCS: 70450; 72100; 73030